=== PATIENT | female | born 1935 | race Caucasian/White ===

== ENCOUNTER 2018-01-18 14:48 | Observation (INO) | payer OTHER ==
[~2018-01-18] VITALS: Ht 157.5 cm; Wt 68.0 kg
[2018-01-18] MEDS ORDERED: SODIUM CHLORIDE 0.9% 1000ML 1,000 ML IV STA (15:16)
--- NOTE | 2018-01-18 15:23 | EMERGENCY ROOM VISIT NOTE ---
History Report prepared by Qiana: Juliet Gray Under the Supervision of: Dr. Cosmo Francisco M.D. First contact with patient: 14:59 Chief Complaint: LEG PAIN,LEG INJURY Stated Complaint: FRACTURED LEFT LEG, RIGHT LEG HEMATOMA, URINARY History of Present Illness The patient is a 82 year old female who presents to the Emergency Room with complaints of an episode of a left leg injury occurring about a week ago. The patient states she was trying to catch her cat and she fell onto her left leg in her front yard. The patient had an appointment at [facility] on Saturday and had an X-ray which showed a left tibia plateau fracture. Per daughter, the patient had a CT of her leg today at [facility]. The patient's daughter states she is concerned for the safety of her mother, given her non-weight bearing status and her difficultly ambulating. She is unsure if she will be having repair surgery on the fracture. The patient started to have blood in her urine and increased urinary frequency today. She denies any abdominal pain. Source of History: patient Onset: a week ago Position: leg (left) Quality: other (injury) Timing: other (episode) Associated Symptoms: + abdominal pain, + urinary symptoms Review of Systems See HPI for pertinent positives & negatives. A total of 10 systems reviewed and were otherwise negative. Past Medical & Surgical Medical Problems: (1) No Known Active Medical Problems Family History Patient reports no known family medical history. Social History Housing Status: lives alone Occupation Status: retired Current/Historical Medications Scheduled Multivitamin (Multivitamin), 1 TAB PO DAILY Omeprazole (Prilosec), 20 MG PO DAILY Simvastatin (Zocor), 40 MG PO QPM Scheduled PRN Buspirone Hcl (Buspirone Hcl), 1 TAB PO BID PRN for Anxiety Allergies Coded Allergies: Cephalexin (Unverified Allergy, Intermediate, LIP SWELLING, 01/18/18) Estrogens (Unverified Allergy, Intermediate, HIVES, 01/18/18) NSAIDs (Unverified Allergy, Intermediate, HIVES/SWELLING, 01/18/18) Sympathomimetics (Unverified Allergy, Intermediate, HIVES, 01/18/18) Physical Exam Vital Signs Date Time Temp Pulse Resp B/P (MAP) Pulse Ox O2 Delivery O2 Flow Rate FiO2 01/18/18 16:18 78 22 95 01/18/18 15:48 72 17 97 01/18/18 15:32 81 01/18/18 15:24 94 Room Air 01/18/18 15:24 94 Room Air 01/18/18 14:51 36.6 88 18 135/79 95 Room Air Physical Exam GENERAL: Awake, alert, well-appearing, in no acute distress HENT: Normocephalic, atraumatic. Oropharynx unremarkable. EYES: Normal conjunctiva. Sclera non-icteric. NECK: Supple. No nuchal rigidity. FROM. No JVD. RESPIRATORY: Clear to auscultation. CARDIAC: Regular rate, normal rhythm. Extremities warm and well perfused. Pulses equal. ABDOMEN: Soft, non-distended. No tenderness to palpation. No rebound or guarding. No masses. RECTAL: Deferred. MUSCULOSKELETAL: Chest examination reveals no tenderness. The back is symmetrical on inspection without obvious abnormality. There is no CVA tenderness to palpation. No joint edema. LOWER EXTREMITIES: Significant bruising to left leg. Calves are equal size bilaterally and non-tender. No edema. No discoloration. : No masses noted, no discharge. NEURO: Normal sensorium. No sensory or motor deficits noted. SKIN: No rash or jaundice noted. Medical Decision & Procedures ER Provider Diagnostic Interpretation: Radiology results as stated below per my review and radiologist interpretation: PELVIC COMPLETE NON OB FINDINGS: The uterus measured 4 cm. The endometrial stripe measured 3 mm. The right ovary measured not seen. The left ovary measured not seen. There was no evidence of pathologic free pelvic fluid. IMPRESSION: Negative pelvic ultrasound for age The above report was generated using voice recognition software. It may contain grammatical, syntax or spelling errors. Electronically signed by: Lico Del Cid M.D. CHEST ONE VIEW PORTABLE FINDINGS: The bones soft tissues and hemidiaphragms are normal. The cardiomediastinal silhouette is normal. The lungs are clear. The pulmonary vasculature is normal. Platelike atelectasis left base. IMPRESSION: Negative chest. The above report was generated using voice recognition software. It may contain grammatical, syntax or spelling errors. Electronically signed by: Lico Del Cid M.D. HEAD WITHOUT CONTRAST (CT) Findings: The paranasal sinuses and mastoid air cells are clear. The calvarium and skull base are intact. The ventricles and sulci are within normal limits. There is no mass, hematoma, midline shift, or acute infarct. Mild chronic small vessel change Impression: No acute intracranial abnormality. Age-related chronic small vessel change The above report was generated using voice recognition software. It may contain grammatical, syntax or spelling errors. Electronically signed by: Lico Del Cid M.D. Imaging obtained from [facility]: CT LOWER EXTREMITY WITHOUT CONTRAST: IMPRESSION: 1. Subtle nondisplaced fracture involving the posterior rim of the medial tibial plateau. 2. Background nondisplaced tricompartmental osteoarthritis, severe in the medial compartment. Laboratory Results 01/18/18 14:40 Red Blood Count 3.98, Mean Corpuscular Volume 94.5, Mean Corpuscular Hemoglobin 31.4, Mean Corpuscular Hemoglobin Concent 33.2, Mean Platelet Volume 9.8, Neutrophils (%) (Auto) 57.4, Lymphocytes (%) (Auto) 32.3, Monocytes (%) (Auto) 8.0, Eosinophils (%) (Auto) 1.6, Basophils (%) (Auto) 0.6, Neutrophils # (Auto) 3.96, Lymphocytes # (Auto) 2.23, Monocytes # (Auto) 0.55, Eosinophils # (Auto) 0.11, Basophils # (Auto) 0.04 01/18/18 14:40 Test 01/18/18 14:40 01/18/18 14:50 White Blood Count 6.90 K/uL (4.8-10.8) Red Blood Count 3.98 M/uL (4.2-5.4) Hemoglobin 12.5 g/dL (12.0-16.0) Hematocrit 37.6 % (37-47) Mean Corpuscular Volume 94.5 fL (80-100) Mean Corpuscular Hemoglobin 31.4 pg (25-34) Mean Corpuscular Hemoglobin Concent 33.2 g/dl (32-36) Platelet Count 275 K/uL (130-400) Mean Platelet Volume 9.8 fL (7.4-10.4) Neutrophils (%) (Auto) 57.4 % Lymphocytes (%) (Auto) 32.3 % Monocytes (%) (Auto) 8.0 % Eosinophils (%) (Auto) 1.6 % Basophils (%) (Auto) 0.6 % Neutrophils # (Auto) 3.96 K/uL (1.4-6.5) Lymphocytes # (Auto) 2.23 K/uL (1.2-3.4) Monocytes # (Auto) 0.55 K/uL (0.11-0.59) Eosinophils # (Auto) 0.11 K/uL (0-0.5) Basophils # (Auto) 0.04 K/uL (0-0.2) RDW Standard Deviation 45.9 fL (36.4-46.3) RDW Coefficient of Variation 13.2 % (11.5-14.5) Immature Granulocyte % (Auto) 0.1 % Immature Granulocyte # (Auto) 0.01 K/uL (0.00-0.02) Anion Gap 5.0 mmol/L (3-11) Est Creatinine Clear Calc Drug Dose 37.4 ml/min Estimated GFR () 58.2 Estimated GFR (Non- 50.2 BUN/Creatinine Ratio 11.4 (10-20) Calcium Level 8.8 mg/dl (8.5-10.1) Total Bilirubin 0.4 mg/dl (0.2-1) Direct Bilirubin 0.1 mg/dl (0-0.2) Aspartate Amino Transf (AST/SGOT) 43 U/L (15-37) Alanine Aminotransferase (ALT/SGPT) 29 U/L (12-78) Alkaline Phosphatase 86 U/L (45-117) Total Creatine Kinase 303 U/L (26-192) Creatine Kinase MB 3.2 ng/ml (0.5-3.6) Creatine Kinase MB Ratio 1.1 (0-3.0) Troponin I < 0.015 ng/ml (0-0.045) Total Protein 7.5 gm/dl (6.4-8.2) Albumin 3.3 gm/dl (3.4-5.0) Thyroid Stimulating Hormone (TSH) 3.690 uIu/ml (0.300-4.500) Urine Color YELLOW Urine Appearance CLEAR (CLEAR) Urine pH 5.5 (4.5-7.5) Urine Specific [place] 1.017 (1.000-1.030) Urine Protein NEG (NEG) Urine Glucose (UA) NEG (NEG) Urine Ketones NEG (NEG) Urine Occult Blood NEG (NEG) Urine Nitrite NEG (NEG) Urine Bilirubin NEG (NEG) Urine Urobilinogen NEG (NEG) Urine Leukocyte Esterase SMALL (NEG) Urine WBC (Auto) 10-30 /hpf (0-5) Urine RBC (Auto) 0-4 /hpf (0-4) Urine Hyaline Casts (Auto) 1-5 /lpf (0-5) Urine Epithelial Cells (Auto) 0-5 /lpf (0-5) Urine Bacteria (Auto) 2+ (NEG) Date/Time Source Procedure Growth Status 01/18/18 16:00 Cervix Swab Trichomonas Preparation - Final Complete Labs reviewed by ED physician. Medications Administered Medications (Trade) Dose Ordered Sig/Marylou Route Start Time Stop Time Status Last Admin Dose Admin Sodium Chloride 1,000 ml @ 999 mls/hr Q1H1M STAT IV 01/18/18 15:16 01/18/18 16:16 DC 01/18/18 15:16 999 MLS/HR Trimethoprim/ Sulfamethoxazole (Septra Ds 800/ 160MG Tab) 1 tab NOW STAT PO 01/18/18 16:32 01/18/18 16:33 DC 01/18/18 17:24 1 TAB Potassium Chloride (Klor-Con M10) 10 meq TODAY@1735 PO 01/18/18 17:35 01/18/18 23:59 01/18/18 18:56 10 MEQ ECG Per My Interpretation Indication: weakness Rate (beats per minute): 66 Rhythm: normal sinus Findings: other (No ST elevation or depression, normal axis) ED Course 1501: Past medical records reviewed. The patient was evaluated in room B11B. A complete history and physical examination was performed. 1516: Ordered Sodium Chloride 1000 ml @ 999 mls/hr. 1632: Ordered Trimethoprim/Sulfamethoxazole 1 tab PO. 1652: I updated the patient on her test results. 1706: I discussed the patient's case with Dr. Hernandez , he has agreed to evaluate the patient for further management and care. Medical Decision Differential diagnosis: Etiologies such as fracture, dislocation, intra-abdominal, pneumothorax, intrathoracic , intracranial, neurologic, renal colic, appendicitis, diverticulitis, mesenteric ischemia, aortic pathology, infections, inflammatory bowel disease, PUD, biliary pathology, UTI, as well as others were entertained. This is an 82-year-old female presents emergency department complaining of left- sided tibial plateau fracture. The patient cannot ambulate around her house as she requires a walker and now can no longer walk due to the injury. There is concern that the patient is not able to care for herself at home. In addition the patient also had a pessary recently removed and is concerned about a UTI. Patient was sent for CAT scan of the head as well as chest x-ray. Pelvic ultrasound does not show any masses. Patient was started on normal saline bolus. I did discuss the case with the hospitalist service who agreed to admit the patient. Patient was in agreement with the treatment plan. Medication Reconcilliation Current Medication List: was personally reviewed by me Blood Pressure Screening Patient's blood pressure: Elevated blood pressure Blood pressure disposition: Elevated BP felt to be situational Consults Time Called: 165 Consulting Physician: Dr. Hernandez Returned Call: [phone] I discussed the patient's case with Dr. Hernandez , he has agreed to evaluate the patient for further management and care. Impression Primary Impression: Tibial plateau fracture Additional Impression: UTI (urinary tract infection) Scribe Attestation The scribe's documentation has been prepared under my direction and personally reviewed by me in its entirety. I confirm that the note above accurately reflects all work, treatment, procedures, and medical decision making performed by me. Departure Information Dispostion Being Evaluated By Hospitalist Referrals No Doctor, Assigned (PCP) Patient Instructions My [facility] Problem Qualifiers Primary Impression: Tibial plateau fracture Encounter type: initial encounter Fracture type: closed Laterality: left Qualified Codes: S82.142A - Displaced bicondylar fracture of left tibia, initial encounter for closed fracture Additional Impression: UTI (urinary tract infection) Urinary tract infection type: acute cystitis Hematuria presence: without hematuria Qualified Codes: N30.00 - Acute cystitis without hematuria
[2018-01-18 16:03] LABS: BASO % 0.6 %; BASO ABS # 0.04 K/uL (0-0.2); EOS % 1.6 %; EOS ABS # 0.11 K/uL (0-0.5); HEMATOCRIT 37.6 % (37-47); HEMOGLOBIN 12.5 g/dL (12.0-16.0); IG# 0.01 K/uL (0.00-0.02); LYMPH % 32.3 %; LYMPH ABS # 2.23 K/uL (1.2-3.4); MEAN CELL VOLUME 94.5 fL (80-100); MEAN CORPUSCULAR HEMOGLOBIN 31.4 pg (25-34); MEAN CORPUSCULAR HGB CONC 33.2 g/dl (32-36); MEAN PLATELET VOLUME 9.8 fL (7.4-10.4); MONO ABS # 0.55 K/uL (0.11-0.59); NEUT % 57.4 %; NEUT ABS # 3.96 K/uL (1.4-6.5); PLATELET COUNT 275 K/uL (130-400); RED CELL DISTRIBUTION WIDTH CV 13.2 % (11.5-14.5); RED CELL DISTRIBUTION WIDTH SD 45.9 fL (36.4-46.3)
[2018-01-18] MEDS ORDERED: PRLSR20 PO (16:14)
[2018-01-18] MEDS ORDERED: MULT-506 PO (16:14)
[2018-01-18] MEDS ORDERED: BUSP5TAB59 PO (16:14)
[2018-01-18] MEDS ORDERED: SIMV40TA2 PO (16:14)
[2018-01-18 16:20] LABS: ALBUMIN 3.3 gm/dl (3.4-5.0); ALT/SGPT 29 U/L (12-78); BLOOD UREA NITROGEN 12 mg/dl (7-18); CALCIUM 8.8 mg/dl (8.5-10.1); CARBON DIOXIDE 28 mmol/L (21-32); CREATININE 1.03 mg/dl (0.60-1.20); GLUCOSE 98 mg/dl (70-99); POTASSIUM 3.4 mmol/L (3.5-5.1); SODIUM 140 mmol/L (136-145)
--- NOTE | 2018-01-18 16:23 | DIAGNOSTIC IMAGING REPORT ---
CHEST ONE VIEW PORTABLE CLINICAL HISTORY: Pt c/O AMS mental status change. Dyspnea. COMPARISON STUDY: No previous studies for comparison. FINDINGS: The bones soft tissues and hemidiaphragms are normal. The cardiomediastinal silhouette is normal. The lungs are clear. The pulmonary vasculature is normal. Platelike atelectasis left base. IMPRESSION: Negative chest. The above report was generated using voice recognition software. It may contain grammatical, syntax or spelling errors. Electronically signed by: Lico Del Cid M.D. 01/18/2018 4:21 PM Dictated Date/Time: 01/18/2018 4:21 PM
[2018-01-18 16:30] LABS: ALKALINE PHOSPHATASE 86 U/L (45-117); AST/SGOT 43 U/L (15-37); CKMB 3.2 ng/ml (0.5-3.6); TOTAL PROTEIN 7.5 gm/dl (6.4-8.2)
[2018-01-18] MEDS ORDERED: SULFAMETHOXAZOLE/TRIMETHOPRIM DS 800/160MG TAB PO STA (16:32)
--- NOTE | 2018-01-18 17:08 | DIAGNOSTIC IMAGING REPORT ---
HEAD WITHOUT CONTRAST (CT) CT DOSE: 601.98 mGy.cm HISTORY: Mental status change Pt c/o AMS TECHNIQUE: Multiaxial CT images of the head were performed without the use of intravenous contrast. A dose lowering technique was utilized adhering to the principles of ALARA. Comparison: None. Findings: The paranasal sinuses and mastoid air cells are clear. The calvarium and skull base are intact. The ventricles and sulci are within normal limits. There is no mass, hematoma, midline shift, or acute infarct. Mild chronic small vessel change Impression: No acute intracranial abnormality. Age-related chronic small vessel change The above report was generated using voice recognition software. It may contain grammatical, syntax or spelling errors. Electronically signed by: Lico Del Cid M.D. 01/18/2018 5:07 PM Dictated Date/Time: 01/18/2018 5:06 PM
--- NOTE | 2018-01-18 17:19 | DIAGNOSTIC IMAGING REPORT ---
PELVIC COMPLETE NON OB CLINICAL HISTORY: Pt c/o vag bleeding BLEEDING COMPARISON STUDY: None FINDINGS: The uterus measured 4 cm. The endometrial stripe measured 3 mm. The right ovary measured not seen. The left ovary measured not seen. There was no evidence of pathologic free pelvic fluid. IMPRESSION: Negative pelvic ultrasound for age The above report was generated using voice recognition software. It may contain grammatical, syntax or spelling errors. Electronically signed by: Lico Del Cid M.D. 01/18/2018 5:18 PM Dictated Date/Time: 01/18/2018 5:17 PM
[2018-01-18] MEDS ORDERED: ACETAMINOPHEN 325 MG TAB PO PRN (18:00)
[2018-01-18] MEDS ORDERED: ONDANSETRON INJ 2 MG/ML 2 ML VIAL IV PRN (18:00)
[2018-01-18] MEDS: POTASSIUM CHLORIDE 10 MEQ TABCR PO SCH ×2 (18:54→18:56)
[2018-01-18 19:00] VITALS: BP 130/73; PULSE 74; TEMP 36.6; O2SAT 96; Ht 157.5 cm; Wt 68.0 kg
--- NOTE | 2018-01-18 19:43 | History and Physical ---
History & Physical Date & Time of Service: Jan 18, 2018 at 19:26 Chief Complaint: Tibial Plateau Fracture Primary Care Physician: Delta Campos D.O. History of Present Illness Source: patient, family, clinic records This is an 82 year old female with a PMH of HLD, GERD, anxiety - presents after a mechanical fall; states she fell on a root while outside, scraped the back of her right elbow and landed on both of her knees and face. She was seen by orthopedics, Dr. Mojica, as an outpatient and had a CT of the L knee done as well as L knee aspiration. CT suggested L tibial plateau fracture. Patient was to have physical therapy as an outpatient, but due to her inability to ambulate , she presented to the ED. Upon presentation - plan was to send her to rehab ([facility]), but due to insurance purposes, she was admitted. Currently, denying most symptoms, including L knee pain. Past Medical/Surgical History Medical Problems: (1) No Known Active Medical Problems Family History Patient reports no known family medical history. Social History Occupational Status: retired Allergies Coded Allergies: Cephalexin (Unverified Allergy, Intermediate, LIP SWELLING, 01/18/18) Estrogens (Unverified Allergy, Intermediate, HIVES, 01/18/18) NSAIDs (Unverified Allergy, Intermediate, HIVES/SWELLING, 01/18/18) Sympathomimetics (Unverified Allergy, Intermediate, HIVES, 01/18/18) Home Medications Scheduled Multivitamin (Multivitamin), 1 TAB PO DAILY Omeprazole (Prilosec), 20 MG PO DAILY Simvastatin (Zocor), 40 MG PO QPM Scheduled PRN Buspirone Hcl (Buspirone Hcl), 1 TAB PO BID PRN for Anxiety Review of Systems Constitutional: No fever, No chills, No weakness Eyes: No worsening of vision ENT: No hearing loss Respiratory: No cough, No sputum, No wheezing, No shortness of breath, No dyspnea on exertion, No dyspnea at rest, No hemoptysis Cardiovascular: No chest pain, No edema, No palpitations Abdomen: No pain, No nausea, No vomiting, No diarrhea, No constipation, No GI bleeding Musculoskeletal: + swelling (L knee), No joint pain, No muscle pain, No calf pain Genitourinary - Female: No dysuria, No urinary frequency, No urinary urgency, No urinary incontinence, No urinary retention, No hematuria Neurologic: + balance problems, No memory loss, No paralysis, No weakness, No numbness/tingling, No vertigo Psychiatric: No depression symptoms, No anxiety, No insomnia Endocrine: No fatigue Hematologic / Lymphatic: No abnormal bleeding/bruising Integumentary: No rash Allergic / Immunologic: No environmental allergies, No seasonal allergies Physical Exam Vital Signs Date Time Temp Pulse Resp B/P (MAP) Pulse Ox O2 Delivery O2 Flow Rate FiO2 01/18/18 19:04 36.6 95 22 136/87 95 01/18/18 18:37 95 136/87 01/18/18 16:18 78 22 95 01/18/18 15:48 72 17 97 01/18/18 15:32 81 01/18/18 15:24 94 Room Air 01/18/18 15:24 94 Room Air 01/18/18 14:51 36.6 88 18 135/79 95 Room Air General Appearance: no apparent distress Head: normocephalic, atraumatic Eyes: normal inspection ENT: normal ENT inspection, hearing grossly normal Neck: supple Respiratory/Chest: chest non-tender, lungs clear, normal breath sounds, no respiratory distress, no accessory muscle use Cardiovascular: regular rate, rhythm, no edema, no murmur, normal peripheral pulses Abdomen/GI: normal bowel sounds, non tender, soft Back: normal inspection, no CVA tenderness, no muscle spasm, normal range of motion Extremities/Musculoskelatal: no calf tenderness, normal capillary refill, no pedal edema, + swelling (L knee and thigh swelling), + pertinent finding ( decreased flexion of the L knee) 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, no motor/sensory deficits, alert, normal mood/affect, oriented x 3 Skin: normal color Lymphatic: no adenopathy Diagnostics Laboratory Results Results Past 24 Hours Test 01/18/18 14:40 01/18/18 14:50 01/18/18 19:22 Range/Units White Blood Count 6.90 4.8-10.8 K/uL Red Blood Count 3.98 4.2-5.4 M/uL Hemoglobin 12.5 12.0-16.0 g/dL Hematocrit 37.6 37-47 % Mean Corpuscular Volume 94.5 80-100 fL Mean Corpuscular Hemoglobin 31.4 25-34 pg Mean Corpuscular Hemoglobin Concent 33.2 32-36 g/dl Platelet Count 275 130-400 K/uL Mean Platelet Volume 9.8 7.4-10.4 fL Neutrophils (%) (Auto) 57.4 % Lymphocytes (%) (Auto) 32.3 % Monocytes (%) (Auto) 8.0 % Eosinophils (%) (Auto) 1.6 % Basophils (%) (Auto) 0.6 % Neutrophils # (Auto) 3.96 1.4-6.5 K/uL Lymphocytes # (Auto) 2.23 1.2-3.4 K/uL Monocytes # (Auto) 0.55 0.11-0.59 K/uL Eosinophils # (Auto) 0.11 0-0.5 K/uL Basophils # (Auto) 0.04 0-0.2 K/uL RDW Standard Deviation 45.9 36.4-46.3 fL RDW Coefficient of Variation 13.2 11.5-14.5 % Immature Granulocyte % (Auto) 0.1 % Immature Granulocyte # (Auto) 0.01 0.00-0.02 K/uL Sodium Level 140 136-145 mmol/L Potassium Level 3.4 3.5-5.1 mmol/L Chloride Level 107 98-107 mmol/L Carbon Dioxide Level 28 21-32 mmol/L Anion Gap 5.0 3-11 mmol/L Blood Urea Nitrogen 12 7-18 mg/dl Creatinine 1.03 0.60-1.20 mg/dl Est Creatinine Clear Calc Drug Dose 37.4 ml/min Estimated GFR () 58.2 Estimated GFR (Non- 50.2 BUN/Creatinine Ratio 11.4 10-20 Random Glucose 98 70-99 mg/dl Calcium Level 8.8 8.5-10.1 mg/dl Total Bilirubin 0.4 0.2-1 mg/dl Direct Bilirubin 0.1 0-0.2 mg/dl Aspartate Amino Transf (AST/SGOT) 43 15-37 U/L Alanine Aminotransferase (ALT/SGPT) 29 12-78 U/L Alkaline Phosphatase 86 45-117 U/L Total Creatine Kinase 303 26-192 U/L Creatine Kinase MB 3.2 0.5-3.6 ng/ml Creatine Kinase MB Ratio 1.1 0-3.0 Troponin I < 0.015 0-0.045 ng/ml Total Protein 7.5 6.4-8.2 gm/dl Albumin 3.3 3.4-5.0 gm/dl Thyroid Stimulating Hormone (TSH) 3.690 0.300-4.500 uIu/ml Urine Color YELLOW Urine Appearance CLEAR CLEAR Urine pH 5.5 4.5-7.5 Urine Specific [place] 1.017 1.000-1.030 Urine Protein NEG NEG Urine Glucose (UA) NEG NEG Urine Ketones NEG NEG Urine Occult Blood NEG NEG Urine Nitrite NEG NEG Urine Bilirubin NEG NEG Urine Urobilinogen NEG NEG Urine Leukocyte Esterase SMALL NEG Urine WBC (Auto) 10-30 0-5 /hpf Urine RBC (Auto) 0-4 0-4 /hpf Urine Hyaline Casts (Auto) 1-5 0-5 /lpf Urine Epithelial Cells (Auto) 0-5 0-5 /lpf Urine Bacteria (Auto) 2+ NEG Microbiology Results 01/18/18 Trichomonas Preparation - Final, Complete 01/18/18 Gram Stain - Preliminary, Resulted 01/18/18 Genital Culture, Resulted Pending 01/18/18 Urine Culture, Received Pending Diagnostic Radiology HEAD WITHOUT CONTRAST (CT) CT DOSE: 601.98 mGy.cm HISTORY: Mental status change Pt c/o AMS TECHNIQUE: Multiaxial CT images of the head were performed without the use of intravenous contrast. A dose lowering technique was utilized adhering to the principles of ALARA. Comparison: None. Findings: The paranasal sinuses and mastoid air cells are clear. The calvarium and skull base are intact. The ventricles and sulci are within normal limits. There is no mass, hematoma, midline shift, or acute infarct. Mild chronic small vessel change Impression: No acute intracranial abnormality. Age-related chronic small vessel change CHEST ONE VIEW PORTABLE CLINICAL HISTORY: Pt c/O AMS mental status change. Dyspnea. COMPARISON STUDY: No previous studies for comparison. FINDINGS: The bones soft tissues and hemidiaphragms are normal. The cardiomediastinal silhouette is normal. The lungs are clear. The pulmonary vasculature is normal. Platelike atelectasis left base. IMPRESSION: Negative chest. PELVIC COMPLETE NON OB CLINICAL HISTORY: Pt c/o vag bleeding BLEEDING COMPARISON STUDY: None FINDINGS: The uterus measured 4 cm. The endometrial stripe measured 3 mm. The right ovary measured not seen. The left ovary measured not seen. There was no evidence of pathologic free pelvic fluid. IMPRESSION: Negative pelvic ultrasound for age EKG Normal sinus rhythm Normal ECG Impression Assessment and Plan This is an 82 year old female with a PMH of HLD, GERD, anxiety - presents after a mechanical fall and subsequently found to have a nondisplaced L tibial plateau fracture Nondisplaced L Tibial Plateau Fracture - nonsurgical fracture of the L tibia - will consult PT/OT - partial weightbearing status on the L as of now - may need to discuss weightbearing status with Dr. Mojica ([facility]) - will need placement - case management consulted - tramadol PRN for pain HLD - continue Zocor GERD - PPI DVT ppx - Lovenox (monitor for hematoma) FULL CODE Resuscitation Status VTE Prophylaxis Will order VTE Prophylaxis: Yes
[2018-01-18] MEDS ORDERED: TRAMADOL HCL 50 MG TAB PO PRN (19:45)
[2018-01-18] MEDS ORDERED: IV FLUIDS COMPLETED PRN (20:30)
[2018-01-18] MEDS: ENOXAPARIN 40 MG/0.4 ML SYR SQ SCH (21:00)
[2018-01-18] MEDS: SIMVASTATIN 40 MG TAB PO SCH (21:13)
[2018-01-18 23:05] VITALS: BP 112/66; PULSE 75; TEMP 36.8; O2SAT 93
[2018-01-19 07:20] VITALS: BP 128/71; PULSE 71; TEMP 36.4; O2SAT 93
[2018-01-19] MEDS: MULTIVITAMIN TAB PO SCH (08:40)
[2018-01-19] MEDS: PANTOprazole SOD 40 MG TAB PO SCH (08:40)
[2018-01-19 09:16] LABS: BASO % 0.4 %; BASO ABS # 0.03 K/uL (0-0.2); EOS ABS # 0.16 K/uL (0-0.5); HEMATOCRIT 39.5 % (37-47); IG# 0.01 K/uL (0.00-0.02); LYMPH % 28.7 %; LYMPH ABS # 2.33 K/uL (1.2-3.4); MEAN CELL VOLUME 95.4 fL (80-100); MEAN CORPUSCULAR HEMOGLOBIN 31.4 pg (25-34); MEAN CORPUSCULAR HGB CONC 32.9 g/dl (32-36); MEAN PLATELET VOLUME 9.5 fL (7.4-10.4); MONO % 5.8 %; MONO ABS # 0.47 K/uL (0.11-0.59); NEUT ABS # 5.11 K/uL (1.4-6.5); PLATELET COUNT 260 K/uL (130-400); RED CELL DISTRIBUTION WIDTH CV 13.5 % (11.5-14.5); RED CELL DISTRIBUTION WIDTH SD 46.7 fL (36.4-46.3); WHITE BLOOD COUNT 8.11 K/uL (4.8-10.8)
--- NOTE | 2018-01-19 09:49 | Progress Note ---
Medicine Progress Note Date & Time of Visit: Jan 19, 2018 at 09:42. Subjective Seen resting in bed comfortable States she has pain on her knee cap mild to moderate, worse with bending the knee joint Denies chest pain, dyspnea, palpitations, dizziness no other symptoms Objective Last 8 Hrs Date Time Temp Pulse Resp B/P (MAP) Pulse Ox O2 Delivery O2 Flow Rate FiO2 01/19/18 07:46 Room Air 01/19/18 07:20 36.4 71 16 128/71 (90) 93 Room Air Physical Exam: General- oriented x 3 not in distress speaking sentences no accessory muscle use Head- atraumatic Eyes- PERRL, EOMI, anicteric ENT- oropharynx clear Neck- supple, no JVD, no adenopathy, no thyromegaly Lungs- clear to auscultation bilaterally Heart- regular rhythm; no murmur, normal rate Abdomen- normal bowel sounds, soft, nontender, no masses or hepatosplenomegaly Extremities- Left knee positive moderate edema on the medial aspect, mild tenderness on the patella, no erythema/warmth limited knee flexion no pretibial edema, no calf tenderness; peripheral pulses intact Neuro- alert, oriented x 3; no gross focal deficits Skin- warm & dry Laboratory Results: Last 24 Hours Test 01/18/18 14:40 01/18/18 14:50 01/18/18 15:30 01/18/18 20:00 White Blood Count 6.90 K/uL Red Blood Count 3.98 M/uL Hemoglobin 12.5 g/dL Hematocrit 37.6 % Mean Corpuscular Volume 94.5 fL Mean Corpuscular Hemoglobin 31.4 pg Mean Corpuscular Hemoglobin Concent 33.2 g/dl Platelet Count 275 K/uL Mean Platelet Volume 9.8 fL Neutrophils (%) (Auto) 57.4 % Lymphocytes (%) (Auto) 32.3 % Monocytes (%) (Auto) 8.0 % Eosinophils (%) (Auto) 1.6 % Basophils (%) (Auto) 0.6 % Neutrophils # (Auto) 3.96 K/uL Lymphocytes # (Auto) 2.23 K/uL Monocytes # (Auto) 0.55 K/uL Eosinophils # (Auto) 0.11 K/uL Basophils # (Auto) 0.04 K/uL RDW Standard Deviation 45.9 fL RDW Coefficient of Variation 13.2 % Immature Granulocyte % (Auto) 0.1 % Immature Granulocyte # (Auto) 0.01 K/uL Sodium Level 140 mmol/L Potassium Level 3.4 mmol/L Chloride Level 107 mmol/L Carbon Dioxide Level 28 mmol/L Anion Gap 5.0 mmol/L Blood Urea Nitrogen 12 mg/dl Creatinine 1.03 mg/dl Est Creatinine Clear Calc Drug Dose 37.4 ml/min Estimated GFR () 58.2 Estimated GFR (Non- 50.2 BUN/Creatinine Ratio 11.4 Random Glucose 98 mg/dl Calcium Level 8.8 mg/dl Total Bilirubin 0.4 mg/dl Direct Bilirubin 0.1 mg/dl Aspartate Amino Transf (AST/SGOT) 43 U/L Alanine Aminotransferase (ALT/SGPT) 29 U/L Alkaline Phosphatase 86 U/L Total Creatine Kinase 303 U/L Creatine Kinase MB 3.2 ng/ml Creatine Kinase MB Ratio 1.1 Troponin I < 0.015 ng/ml Total Protein 7.5 gm/dl Albumin 3.3 gm/dl Thyroid Stimulating Hormone (TSH) 3.690 uIu/ml Urine Color YELLOW Urine Appearance CLEAR Urine pH 5.5 Urine Specific [place] 1.017 Urine Protein NEG Urine Glucose (UA) NEG Urine Ketones NEG Urine Occult Blood NEG Urine Nitrite NEG Urine Bilirubin NEG Urine Urobilinogen NEG Urine Leukocyte Esterase SMALL Urine WBC (Auto) 10-30 /hpf Urine RBC (Auto) 0-4 /hpf Urine Hyaline Casts (Auto) 1-5 /lpf Urine Epithelial Cells (Auto) 0-5 /lpf Urine Bacteria (Auto) 2+ Bedside Glucose 96 mg/dl Prothrombin Time 10.8 SECONDS Prothromb Time International Ratio 1.0 Activated Partial Thromboplast Time 25.0 SECONDS Partial Thromboplastin Ratio 1.0 Test 01/19/18 09:04 White Blood Count 8.11 K/uL Red Blood Count 4.14 M/uL Hemoglobin 13.0 g/dL Hematocrit 39.5 % Mean Corpuscular Volume 95.4 fL Mean Corpuscular Hemoglobin 31.4 pg Mean Corpuscular Hemoglobin Concent 32.9 g/dl Platelet Count 260 K/uL Mean Platelet Volume 9.5 fL Neutrophils (%) (Auto) 63.0 % Lymphocytes (%) (Auto) 28.7 % Monocytes (%) (Auto) 5.8 % Eosinophils (%) (Auto) 2.0 % Basophils (%) (Auto) 0.4 % Neutrophils # (Auto) 5.11 K/uL Lymphocytes # (Auto) 2.33 K/uL Monocytes # (Auto) 0.47 K/uL Eosinophils # (Auto) 0.16 K/uL Basophils # (Auto) 0.03 K/uL RDW Standard Deviation 46.7 fL RDW Coefficient of Variation 13.5 % Immature Granulocyte % (Auto) 0.1 % Immature Granulocyte # (Auto) 0.01 K/uL Date/Time Source Procedure Growth Status 01/18/18 16:00 Cervix Swab Trichomonas Preparation - Final Complete 01/18/18 14:50 Genital Female Gram Stain - Final Resulted 01/18/18 14:50 Genital Culture - Preliminary Group B Beta Strep Resulted 01/18/18 14:50 Urine,Catheterized Urine Culture Pending Received Assessment & Plan This is an 82 year old female with a PMH of HLD, GERD, anxiety - presents after a mechanical fall and subsequently found to have a nondisplaced L tibial plateau fracture Nondisplaced L Tibial Plateau Fracture s/p Mechanical Fall - CT scan of the Left Knee 01/18/18 from [facility] (+) nondisplaced fracture of the medial tibial plateau (+) moderate joint effusion - will consult Ortho PRN analgesics, ice pack PT/OT eval - possible transition to Rehab/SNF HLD - continue Zocor GERD - PPI DVT ppx - Lovenox (monitor for hematoma) FULL CODE Disposition usually lives alone at home - possible transition to Rehab/SNF Current Inpatient Medications: Current Inpatient Medications Medications (Trade) Dose Ordered Sig/Marylou Route Start Time Stop Time Status Last Admin Dose Admin Enoxaparin Sodium (Lovenox Inj) 40 mg Q24H SQ 01/18/18 21:00 02/17/18 20:59 Acetaminophen (Tylenol Tab) 650 mg Q4H PRN PO 01/18/18 18:00 02/17/18 17:59 Ondansetron HCl (Zofran Inj) 4 mg Q6H PRN IV 01/18/18 18:00 02/17/18 17:59 Buspirone HCl (Buspar Tab) 5 mg BID PRN PO 01/18/18 18:00 02/17/18 17:59 Multivitamins (Multivitamin Tab) 1 tab DAILY PO 01/19/18 09:00 02/18/18 08:59 01/19/18 08:40 1 TAB Simvastatin (Zocor Tab) 40 mg QPM PO 01/18/18 21:00 02/17/18 20:59 01/18/18 21:13 40 MG Pantoprazole Sodium (Protonix Tab) 40 mg DAILY PO 01/19/18 09:00 02/18/18 08:59 01/19/18 08:40 40 MG Tramadol HCl (Ultram Tab) 50 mg Q4H PRN PO 01/18/18 19:45 02/17/18 19:44 Miscellaneous (Iv Fluids Completed) 1 ea PRN PRN N/A 01/18/18 20:30 01/18/19 20:29
[2018-01-19 09:55] LABS: CALCIUM 8.8 mg/dl (8.5-10.1); CREATININE 1.05 mg/dl (0.60-1.20); POTASSIUM 3.7 mmol/L (3.5-5.1)
--- NOTE | 2018-01-19 14:09 | ORTHOPEDIC CONSULTATION ---
DATE OF CONSULTATION: 01/19/2018 HISTORY OF PRESENT ILLNESS: This is an 82-year-old female who is seen at the request of Dr. De Leon and the medical service for left knee pain status post fall directly on to her left knee several days ago. The patient was seen by another provider as she was unable to get an earlier appointment at any other facilities and was given instructions to minimize left lower extremity weightbearing and she had a knee aspiration of the left knee. She had a CT scan performed and noted a nondisplaced medial tibial plateau fracture. She had inability to ambulate and was having significant difficulty with weightbearing, walking and maintaining nonweightbearing status and she then presented to the ER with ambulatory dysfunction and was then admitted to the hospital. The patient states that knee pain is well managed if she maintains nonweightbearing. She has had no significant discomfort in the left knee prior to her fall, but she did note that she has been losing range of motion of the left knee for the last several years. Prior to admission, she was staying at a 96-year-old friend's home and she was sleeping upright in a recliner. She is . PAST MEDICAL HISTORY: Reflux and hypercholesterolemia as well as some anxiety. PAST SURGICAL HISTORY: Noncontributory. ALLERGIES: CEPHALEXIN WITH SOME LIP SWELLING, ESTROGEN HIVES, NSAIDs HIVES AND SWELLING, SYMPATHOMIMETICS HIVES. MEDICATIONS: Multivitamin daily, Prilosec 20 mg p.o. daily, Zocor 40 mg p.o. q.p.m. and BuSpar 1 tab p.o. b.i.d. p.r.n. anxiety. SOCIAL HISTORY: She is . She is retired. She lives alone. However, recently, she has been staying at a friend's home after injury. Denies tobacco, alcohol or drug use. PHYSICAL EXAMINATION: GENERAL: This is a pleasant 82-year-old female who is present with family members at bedside. She is sitting upright, eating lunch. NEUROLOGIC: A&O x3. Speech clear and fluent. Affect is appropriate. She is wearing glasses. HEART: Regular rate and rhythm. LUNGS: Clear to auscultation bilaterally. ABDOMEN: Soft, nontender. EXTREMITIES: Examination of the left knee demonstrates skin warm, dry and intact. Minor bruising along the anterior aspect of the patella. She has tenderness to palpation on the medial joint line and also at the medial tibial plateau. Also, tenderness over the anterior aspect of the patella. Collateral ligaments are stable. Range of motion is limited due to some pain and guarding. Range of motion is 12 degrees of flexion to approximately 90 degrees of flexion. She has a flexion contracture of the left knee, which the patient states is not new. There is [id number] crepitation with active and passive flexion and extension of bilateral knees. Also noted some bruising and abrasions of the anterior aspect of the right knee; however, there is no deep tenderness felt with palpation. No ligamentous instability. Right knee motion is 0-110 degrees of flexion without pain or difficulty. IMAGING STUDIES: Radiographs reviewed from [facility] demonstrate advanced degenerative joint disease of the left knee with marginal osteophytes, subchondral sclerosis and formation of subchondral cysts. There is a flexed position of the knee. No obvious displaced fractures are noted. Osteopenia is evident. LABORATORY DATA: Reviewed. IMPRESSION: 1. Left nondisplaced medial tibial plateau fracture. 2. Degenerative joint disease, left knee. 3. Flexion contracture, left knee. 4. Effusion, left knee. RECOMMENDATIONS: Limited toe touch weightbearing with a walker and assist x1. Ice p.r.n. to the left knee. Recommend referral for rehabilitation center versus [facility] facility with physical therapy available. The patient will be unable to tolerate use of crutches or a walker for assisted use due to her limited upper body strength. Follow up with Dr. Farmer in the clinic in approximately 3-4 weeks for further followup care and management unless she prefers to be seen by the other provider at [facility].
[2018-01-19 15:10] VITALS: BP 126/69; PULSE 82; TEMP 36.7; O2SAT 95
[2018-01-19 15:12] VITALS: BP 136/76; PULSE 78; O2SAT 94
[2018-01-19 15:14] VITALS: BP 117/80; PULSE 95; O2SAT 93
[2018-01-19] MEDS: SIMVASTATIN 40 MG TAB PO SCH (20:35)
[2018-01-19] MEDS: ENOXAPARIN 40 MG/0.4 ML SYR SQ SCH (20:38)
[2018-01-19 23:05] VITALS: BP 131/82; PULSE 84; TEMP 36.9; O2SAT 94
[2018-01-20 07:31] LABS: BASO % 0.3 %; BASO ABS # 0.02 K/uL (0-0.2); EOS % 2.9 %; EOS ABS # 0.19 K/uL (0-0.5); HEMATOCRIT 35.7 % (37-47); HEMOGLOBIN 11.8 g/dL (12.0-16.0); IG# 0.02 K/uL (0.00-0.02); LYMPH % 36.1 %; LYMPH ABS # 2.38 K/uL (1.2-3.4); MEAN CELL VOLUME 93.9 fL (80-100); MEAN CORPUSCULAR HEMOGLOBIN 31.1 pg (25-34); MEAN CORPUSCULAR HGB CONC 33.1 g/dl (32-36); MEAN PLATELET VOLUME 9.5 fL (7.4-10.4); MONO % 8.5 %; MONO ABS # 0.56 K/uL (0.11-0.59); NEUT % 51.9 %; NEUT ABS # 3.43 K/uL (1.4-6.5); PLATELET COUNT 248 K/uL (130-400); RED CELL DISTRIBUTION WIDTH CV 13.6 % (11.5-14.5); RED CELL DISTRIBUTION WIDTH SD 46.9 fL (36.4-46.3)
[2018-01-20 07:59] LABS: CALCIUM 8.6 mg/dl (8.5-10.1); CREATININE 0.89 mg/dl (0.60-1.20); POTASSIUM 3.6 mmol/L (3.5-5.1)
[2018-01-20 08:24] VITALS: BP 134/82; PULSE 71; TEMP 36.5; O2SAT 95
[2018-01-20 08:27] VITALS: O2SAT 95
[2018-01-20] MEDS: MULTIVITAMIN TAB PO SCH (09:18)
[2018-01-20] MEDS: PANTOprazole SOD 40 MG TAB PO SCH (09:19)
[2018-01-20 15:06] VITALS: BP 133/75; PULSE 77; TEMP 36.7; O2SAT 96
[2018-01-20 15:48] VITALS: BP_SYST 126; BP_SYST 145; BP_DIAS 64; BP_DIAS 80; PULSE 90; PULSE 97
--- NOTE | 2018-01-20 16:44 | Progress Note ---
Medicine Progress Note Date & Time of Visit: Jan 20, 2018 at 16:41. Subjective seen resting in bed, comfortable in good spirits states she feels fine overall except for intermittent left knee pain, worse with knee extension no other symptoms Objective Last 8 Hrs Date Time Temp Pulse Resp B/P (MAP) Pulse Ox O2 Delivery O2 Flow Rate FiO2 01/20/18 15:48 97 145/80 (101) 90 126/64 (84) 01/20/18 15:06 36.7 77 18 133/75 (94) 96 Room Air Physical Exam: General- oriented x 3 not in distress speaking sentences no accessory muscle use Eyes- anicteric Neck- supple, no JVD Lungs- clear to breath sounds bilaterally Heart- regular rhythm; no murmur, normal rate Abdomen- normal bowel sounds, soft, nontender Extremities- Left knee positive moderate edema on the medial aspect- improved, mild tenderness on the patella, no erythema/warmth limited knee flexion no pretibial edema, no calf tenderness; peripheral pulses intact Neuro- alert, oriented x 3; no gross focal deficits Skin- warm & dry Laboratory Results: Last 24 Hours Test 01/20/18 06:36 White Blood Count 6.60 K/uL Red Blood Count 3.80 M/uL Hemoglobin 11.8 g/dL Hematocrit 35.7 % Mean Corpuscular Volume 93.9 fL Mean Corpuscular Hemoglobin 31.1 pg Mean Corpuscular Hemoglobin Concent 33.1 g/dl Platelet Count 248 K/uL Mean Platelet Volume 9.5 fL Neutrophils (%) (Auto) 51.9 % Lymphocytes (%) (Auto) 36.1 % Monocytes (%) (Auto) 8.5 % Eosinophils (%) (Auto) 2.9 % Basophils (%) (Auto) 0.3 % Neutrophils # (Auto) 3.43 K/uL Lymphocytes # (Auto) 2.38 K/uL Monocytes # (Auto) 0.56 K/uL Eosinophils # (Auto) 0.19 K/uL Basophils # (Auto) 0.02 K/uL RDW Standard Deviation 46.9 fL RDW Coefficient of Variation 13.6 % Immature Granulocyte % (Auto) 0.3 % Immature Granulocyte # (Auto) 0.02 K/uL Sodium Level 138 mmol/L Potassium Level 3.6 mmol/L Chloride Level 107 mmol/L Carbon Dioxide Level 28 mmol/L Anion Gap 4.0 mmol/L Blood Urea Nitrogen 9 mg/dl Creatinine 0.89 mg/dl Est Creatinine Clear Calc Drug Dose 43.3 ml/min Estimated GFR () 69.5 Estimated GFR (Non- 59.9 BUN/Creatinine Ratio 9.6 Random Glucose 86 mg/dl Calcium Level 8.6 mg/dl Assessment & Plan This is an 82 year old female with a PMH of HLD, GERD, anxiety - presents after a mechanical fall and subsequently found to have a nondisplaced L tibial plateau fracture Nondisplaced L Tibial Plateau Fracture s/p Mechanical Fall - CT scan of the Left Knee 01/18/18 from [facility] (+) nondisplaced fracture of the medial tibial plateau (+) moderate joint effusion - Ortho consulted no surgical intervention recommended: Limited toe touch weightbearing with a walker and assist x1. Ice p.r.n. to the left knee. PRN analgesics, ice pack PT/OT in progress -transition to [facility] when accepted HLD - continue Zocor GERD - PPI DVT ppx - Lovenox (monitor for hematoma) FULL CODE Disposition transition to Rehab/SNF when accepted Current Inpatient Medications: Current Inpatient Medications Medications (Trade) Dose Ordered Sig/Marylou Route Start Time Stop Time Status Last Admin Dose Admin Enoxaparin Sodium (Lovenox Inj) 40 mg Q24H SQ 01/18/18 21:00 02/17/18 20:59 01/19/18 20:38 40 MG Acetaminophen (Tylenol Tab) 650 mg Q4H PRN PO 01/18/18 18:00 02/17/18 17:59 Ondansetron HCl (Zofran Inj) 4 mg Q6H PRN IV 01/18/18 18:00 02/17/18 17:59 Buspirone HCl (Buspar Tab) 5 mg BID PRN PO 01/18/18 18:00 02/17/18 17:59 Multivitamins (Multivitamin Tab) 1 tab DAILY PO 01/19/18 09:00 02/18/18 08:59 01/20/18 09:18 1 TAB Simvastatin (Zocor Tab) 40 mg QPM PO 01/18/18 21:00 02/17/18 20:59 01/19/18 20:35 40 MG Pantoprazole Sodium (Protonix Tab) 40 mg DAILY PO 01/19/18 09:00 02/18/18 08:59 01/20/18 09:19 40 MG Tramadol HCl (Ultram Tab) 50 mg Q4H PRN PO 01/18/18 19:45 02/17/18 19:44 Miscellaneous (Iv Fluids Completed) 1 ea PRN PRN N/A 01/18/18 20:30 01/18/19 20:29
[2018-01-20] MEDS: ENOXAPARIN 40 MG/0.4 ML SYR SQ SCH (20:48)
[2018-01-20] MEDS: SIMVASTATIN 40 MG TAB PO SCH (20:48)
[2018-01-20 23:10] VITALS: BP 111/69; PULSE 71; TEMP 37.1; O2SAT 95
[2018-01-21 06:57] LABS: BASO % 0.5 %; BASO ABS # 0.03 K/uL (0-0.2); EOS % 2.2 %; EOS ABS # 0.14 K/uL (0-0.5); HEMATOCRIT 35.1 % (37-47); HEMOGLOBIN 11.7 g/dL (12.0-16.0); IG# 0.01 K/uL (0.00-0.02); LYMPH % 37.9 %; LYMPH ABS # 2.46 K/uL (1.2-3.4); MEAN CELL VOLUME 93.9 fL (80-100); MEAN CORPUSCULAR HEMOGLOBIN 31.3 pg (25-34); MEAN CORPUSCULAR HGB CONC 33.3 g/dl (32-36); MEAN PLATELET VOLUME 9.5 fL (7.4-10.4); MONO % 8.9 %; MONO ABS # 0.58 K/uL (0.11-0.59); NEUT % 50.3 %; NEUT ABS # 3.27 K/uL (1.4-6.5); PLATELET COUNT 230 K/uL (130-400); RED CELL DISTRIBUTION WIDTH CV 13.4 % (11.5-14.5); RED CELL DISTRIBUTION WIDTH SD 45.9 fL (36.4-46.3); WHITE BLOOD COUNT 6.49 K/uL (4.8-10.8)
[2018-01-21 07:17] VITALS: BP 115/71; PULSE 69; TEMP 36.8; O2SAT 92
[2018-01-21 07:35] LABS: CALCIUM 8.8 mg/dl (8.5-10.1); CREATININE 0.88 mg/dl (0.60-1.20); POTASSIUM 3.7 mmol/L (3.5-5.1)
[2018-01-21] MEDS: MULTIVITAMIN TAB PO SCH (08:23)
[2018-01-21] MEDS: PANTOprazole SOD 40 MG TAB PO SCH (08:23)
--- NOTE | 2018-01-21 10:45 | Progress Note ---
Medicine Progress Note Date & Time of Visit: Jan 21, 2018 at 10:43. Subjective seen resting in bed, comfortable states left knee pain continues to feel better denies leg weakness no chest pain, dyspnea, palpitations, dizziness no other symptoms states she is ready and would like to be discharge today Objective Last 8 Hrs Date Time Temp Pulse Resp B/P (MAP) Pulse Ox O2 Delivery O2 Flow Rate FiO2 01/21/18 07:45 Room Air 01/21/18 07:17 36.8 69 18 115/71 (86) 92 Room Air Physical Exam: General- oriented x 3 not in distress speaking sentences no accessory muscle use Neck- no JVD Lungs- clear to breath sounds bilaterally no rales/wheezes Heart- regular rhythm; no murmur, normal rate Abdomen- normal bowel sounds, soft, nontender Extremities- Left knee mild edema on the medial aspect- improved, no tenderness on the patella, no erythema/warmth limited knee flexion-- improving no pretibial edema, no calf tenderness; peripheral pulses intact Neuro- alert, oriented x 3; no gross focal deficits Skin- warm & dry Laboratory Results: Last 24 Hours Test 01/21/18 06:28 White Blood Count 6.49 K/uL Red Blood Count 3.74 M/uL Hemoglobin 11.7 g/dL Hematocrit 35.1 % Mean Corpuscular Volume 93.9 fL Mean Corpuscular Hemoglobin 31.3 pg Mean Corpuscular Hemoglobin Concent 33.3 g/dl Platelet Count 230 K/uL Mean Platelet Volume 9.5 fL Neutrophils (%) (Auto) 50.3 % Lymphocytes (%) (Auto) 37.9 % Monocytes (%) (Auto) 8.9 % Eosinophils (%) (Auto) 2.2 % Basophils (%) (Auto) 0.5 % Neutrophils # (Auto) 3.27 K/uL Lymphocytes # (Auto) 2.46 K/uL Monocytes # (Auto) 0.58 K/uL Eosinophils # (Auto) 0.14 K/uL Basophils # (Auto) 0.03 K/uL RDW Standard Deviation 45.9 fL RDW Coefficient of Variation 13.4 % Immature Granulocyte % (Auto) 0.2 % Immature Granulocyte # (Auto) 0.01 K/uL Sodium Level 139 mmol/L Potassium Level 3.7 mmol/L Chloride Level 107 mmol/L Carbon Dioxide Level 27 mmol/L Anion Gap 5.0 mmol/L Blood Urea Nitrogen 10 mg/dl Creatinine 0.88 mg/dl Est Creatinine Clear Calc Drug Dose 43.8 ml/min Estimated GFR () 70.4 Estimated GFR (Non- 60.8 BUN/Creatinine Ratio 11.2 Random Glucose 88 mg/dl Calcium Level 8.8 mg/dl Assessment & Plan This is an 82 year old female with a PMH of HLD, GERD, anxiety - presents after a mechanical fall and subsequently found to have a nondisplaced L tibial plateau fracture Nondisplaced L Tibial Plateau Fracture s/p Mechanical Fall - CT scan of the Left Knee 01/18/18 from [facility] (+) nondisplaced fracture of the medial tibial plateau (+) moderate joint effusion - Ortho consulted Dr. Farmer no surgical intervention recommended: Limited toe touch weightbearing with a walker and assist x1. Ice p.r.n. to the left knee. PRN analgesics, ice pack PT/OT recommend Rehab/SNF -transition to [facility] ff up with Orthopedic Surgeon Dr. Farmer in 3-4 weeks HLD - continue Zocor GERD - PPI DVT ppx - Lovenox (monitor for hematoma) FULL CODE Disposition transition to Rehab/SNF ff up with Orthopedic Surgeon Dr. Farmer in 3-4 weeks Current Inpatient Medications: Current Inpatient Medications Medications (Trade) Dose Ordered Sig/Marylou Route Start Time Stop Time Status Last Admin Dose Admin Enoxaparin Sodium (Lovenox Inj) 40 mg Q24H SQ 01/18/18 21:00 02/17/18 20:59 01/20/18 20:48 40 MG Acetaminophen (Tylenol Tab) 650 mg Q4H PRN PO 01/18/18 18:00 02/17/18 17:59 Ondansetron HCl (Zofran Inj) 4 mg Q6H PRN IV 01/18/18 18:00 02/17/18 17:59 Buspirone HCl (Buspar Tab) 5 mg BID PRN PO 01/18/18 18:00 02/17/18 17:59 Multivitamins (Multivitamin Tab) 1 tab DAILY PO 01/19/18 09:00 02/18/18 08:59 01/21/18 08:23 1 TAB Simvastatin (Zocor Tab) 40 mg QPM PO 01/18/18 21:00 02/17/18 20:59 01/20/18 20:48 40 MG Pantoprazole Sodium (Protonix Tab) 40 mg DAILY PO 01/19/18 09:00 02/18/18 08:59 01/21/18 08:23 40 MG Tramadol HCl (Ultram Tab) 50 mg Q4H PRN PO 01/18/18 19:45 02/17/18 19:44 Miscellaneous (Iv Fluids Completed) 1 ea PRN PRN N/A 01/18/18 20:30 01/18/19 20:29
[2018-01-21] MEDS ORDERED: ACET-1047 PO (10:47)
--- NOTE | 2018-01-21 10:51 | Discharge Instructions ---
Discharge Instructions Date of Service Jan 21, 2018. Admission Reason for Admission: Tibial Plateau Fracture Discharge Discharge Diagnosis / Problem: TIBIAL PLATEAU FRACTURE Discharge Goals Goal(s): Diagnostic testing, Therapeutic intervention Activity Recommendations Activity Level: Assistance Required Therapies: Physical Therapy, Occupational Therapy Weightbearing Status: Left toe touch (Limited toe touch weightbearing with a walker and assist) Lifting Limitations: until after follow-up appointment Exercise/Sports Limitations: until after follow-up appointment . Additional Information Patient informed of condition: Yes Advance Directives: No (UNKNOWN) DNR: No (PATIENT IS A FULL CODE) Level of Care: Skilled Communicable Disease: No Prognosis: Stable Instructions / Follow-Up Instructions / Follow-Up PLEASE REFER TO ACCOMPANYING HOSPITAL DISCHARGE SUMMARY. Current Hospital Diet Patient's current hospital diet: Regular Diet Discharge Diet Recommended Diet: Regular Diet Pending Studies Studies pending at discharge: no Physician Orders On Transfer Special Precautions: PLEASE REFER TO ACCOMPANYING HOSPITAL DISCHARGE SUMMARY. Medical Emergencies . Who to Call and When: Medical Emergencies: If at any time you feel your situation is an emergency, please call 911 immediately. . Non-Emergent Contact Non-Emergency issues call your: Primary Care Provider, Surgeon (ORTHOPEDIC SURGEON- DR. EMELY PADILLA) Call Non-Emergent contact if: you have a fever, your pain is not controlled, your pain is worsening, wound has increased drainage, wound has increased redness, wound has increased pain, you have any medication questions . . "Provider Documentation" section prepared by Gaudencio De Leon. . Core Measure Problem Core Measures: None
--- NOTE | 2018-01-21 10:57 | Discharge Summary ---
Discharge Summary Date of Service Jan 21, 2018. Discharge Summary Admission Date: Jan 18, 2018 at 17:59 Discharge Date: Jan 21, 2018 Discharge Disposition: [facility] facility Principal Diagnosis: Nondisplaced L Tibial Plateau Fracture; s/p Mechanical Fall Secondary Diagnoses/Problems: Please refer to hospital course below. Procedures: PELVIC COMPLETE NON OB CLINICAL HISTORY: Pt c/o vag bleeding BLEEDING COMPARISON STUDY: None FINDINGS: The uterus measured 4 cm. The endometrial stripe measured 3 mm. The right ovary measured not seen. The left ovary measured not seen. There was no evidence of pathologic free pelvic fluid. IMPRESSION: Negative pelvic ultrasound for age CHEST ONE VIEW PORTABLE CLINICAL HISTORY: Pt c/O AMS mental status change. Dyspnea. COMPARISON STUDY: No previous studies for comparison. FINDINGS: The bones soft tissues and hemidiaphragms are normal. The cardiomediastinal silhouette is normal. The lungs are clear. The pulmonary vasculature is normal. Platelike atelectasis left base. IMPRESSION: Negative chest. The above report was generated using voice recognition software. It may contain grammatical, syntax or spelling errors. HEAD WITHOUT CONTRAST (CT) CT DOSE: 601.98 mGy.cm HISTORY: Mental status change Pt c/o AMS TECHNIQUE: Multiaxial CT images of the head were performed without the use of intravenous contrast. A dose lowering technique was utilized adhering to the principles of ALARA. Comparison: None. Findings: The paranasal sinuses and mastoid air cells are clear. The calvarium and skull base are intact. The ventricles and sulci are within normal limits. There is no mass, hematoma, midline shift, or acute infarct. Mild chronic small vessel change Impression: No acute intracranial abnormality. Age-related chronic small vessel change Consultations: ORTHOPEDIC SURGEON DR. EMELY PADILLA Pending Studies/Follow-Up: PLEASE REFER TO HOSPITAL COURSE BELOW. Medication Reconciliation New Medications: Acetaminophen (Mapap) 325 Mg Tab 650 MG PO Q4H PRN for Pain or Fever for 7 Days Continued Medications: Buspirone Hcl (Buspirone Hcl) 5 Mg Tab 1 TAB PO BID PRN for Anxiety for 30 Days, #60 TAB 2 Refills Multivitamin (Multivitamin) Tab 1 TAB PO DAILY, TAB Omeprazole (Prilosec) 20 Mg Capcr 20 MG PO DAILY, CAP TAKE ONE HOUR BEFORE THE 1ST MEAL OF THE DAY Simvastatin (Zocor) 40 Mg Tab 40 MG PO QPM, TAB Admission Information HPI (per Admitting provider): This is an 82 year old female with a PMH of HLD, GERD, anxiety - presents after a mechanical fall; states she fell on a root while outside, scraped the back of her right elbow and landed on both of her knees and face. She was seen by orthopedics, Dr. Mojica, as an outpatient and had a CT of the L knee done as well as L knee aspiration. CT suggested L tibial plateau fracture. Patient was to have physical therapy as an outpatient, but due to her inability to ambulate , she presented to the ED. Upon presentation - plan was to send her to rehab ([facility]), but due to insurance purposes, she was admitted. Currently, denying most symptoms, including L knee pain. Physical Exam (per Admitting): General Appearance: no apparent distress Head: normocephalic, atraumatic Eyes: normal inspection ENT: normal ENT inspection, hearing grossly normal Neck: supple Respiratory/Chest: chest non-tender, lungs clear, normal breath sounds, no respiratory distress, no accessory muscle use Cardiovascular: regular rate, rhythm, no edema, no murmur, normal peripheral pulses Abdomen/GI: normal bowel sounds, non tender, soft Back: normal inspection, no CVA tenderness, no muscle spasm, normal range of motion Extremities/Musculoskelatal: no calf tenderness, normal capillary refill, no pedal edema, + swelling (L knee and thigh swelling), + pertinent finding ( decreased flexion of the L knee) 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 Padilla no surgical intervention recommended: Limited toe touch weightbearing with a walker and assist x1. Ice p.r.n. to the left knee. PRN analgesics, ice pack PT/OT recommend Rehab/SNF -transition to [facility] continue PT/OT ff up with Orthopedic Surgeon Dr. Padilla in 3-4 weeks HLD - continue Zocor GERD - PPI Disposition transition to Rehab/SNF ff up with Orthopedic Surgeon Dr. Padilla in 3-4 weeks Total time spent on discharge = 25 mins This includes examination of the patient, discharge planning, medication reconciliation, and communication with other providers. Discharge Instructions Discharge Instructions Date of Service Jan 21, 2018. Admission Reason for Admission: Tibial Plateau Fracture Discharge Discharge Diagnosis / Problem: TIBIAL PLATEAU FRACTURE Discharge Goals Goal(s): Diagnostic testing, Therapeutic intervention Activity Recommendations Activity Level: Assistance Required Therapies: Physical Therapy, Occupational Therapy Weightbearing Status: Left toe touch (Limited toe touch weightbearing with a walker and assist) Lifting Limitations: until after follow-up appointment Exercise/Sports Limitations: until after follow-up appointment . Additional Information Patient informed of condition: Yes Advance Directives: No (UNKNOWN) DNR: No (PATIENT IS A FULL CODE) Level of Care: Skilled Communicable Disease: No Prognosis: Stable Instructions / Follow-Up Instructions / Follow-Up PLEASE REFER TO [facility] DISCHARGE SUMMARY. Current Hospital Diet Patient's current hospital diet: Regular Diet Discharge Diet Recommended Diet: Regular Diet Pending Studies Studies pending at discharge: no Physician Orders On Transfer Special Precautions: PLEASE REFER TO [facility]PANYING HOSPITAL DISCHARGE SUMMARY. Medical Emergencies . Who to Call and When: Medical Emergencies: If at any time you feel your situation is an emergency, please call 911 immediately. . Non-Emergent Contact Non-Emergency issues call your: Primary Care Provider, Surgeon (ORTHOPEDIC SURGEON- DR. EMELY PADILLA) Call Non-Emergent contact if: you have a fever, your pain is not controlled, your pain is worsening, wound has increased drainage, wound has increased redness, wound has increased pain, you have any medication questions . . "Provider Documentation" section prepared by Gaudencio De Leon. . Core Measure Problem Core Measures: None
[2018-01-21 13:52] VITALS: BP 115/71; PULSE 69; TEMP 36.8; O2SAT 92
== END 2018-01-21 17:00 ==
LOC: C.EDB 14:49 → C.MSN 17:59 → ENRESERV 18:35
PROVIDERS: ADMIT Family Medicine; ATTEND Internal Medicine
DX: S82.145A Nondisplaced bicondylar fracture of left tibia, initial encounter for closed fracture (principal); W19.XXXA Unspecified fall, initial encounter; Y92.096 Garden or yard of other non-institutional residence as the place of occurrence of the external cause; M17.12 Unilateral primary osteoarthritis, left knee; M24.562 Contracture, left knee; K21.9 Gastro-esophageal reflux disease without esophagitis; E78.00 Pure hypercholesterolemia, unspecified; F41.9 Anxiety disorder, unspecified; Z79.899 Other long term (current) drug therapy; Z88.1 Allergy status to other antibiotic agents; Z88.8 Allergy status to other drugs, medicaments and biological substances

== ENCOUNTER 2019-03-08 12:14 | Inpatient (IN) ==
[2019-03-08] MEDS ORDERED: SODIUM CHLORIDE 0.9% 1000ML 1,000 ML IV SCH (12:45)
--- NOTE | 2019-03-08 12:52 | Emergency Department Note ---
Entered by Isis Nunez acting as a scribe for History of Present Illness General Chief complaint: Urinary Symptoms Stated complaint: FREQ URINATION,BURNING,CONFUSION,WEAKNESS Time Seen by Provider: 03/08/19 12:24 Source: patient and family (daughter) History of Present Illness Onset (ago): week(s) 1 Location: pelvis Pain Consistency: + other (persistent) Maximum Pain Intensity: 0 Exacerbated By: + other (urinary frequency) Associated symptoms: + denies other symptoms (fever, nausea, vomiting, diarrhea, or headaches) and + other (dysuria, excessive thirst, loss of appetite, confusion, fatigue, weakness) The patient is a 83 year old female that is presenting to the Emergency Room with complaints of persistent urinary frequency that has worsened over the past week. The patients daughter reports that the patient has been fatigued and weak over the past month and that she has lost 12 lbs in that time period. Her daughter note that the patient has a prolapsed bladder and that she has been complaining of dysuria with urinary frequency. Her daughter reports that the patient was confused this morning and did not get out of bed at her regular time. Her daughter notes that the patient does not eat much at baseline but sta caleb that she is eating less than usual. The patient denies any fever, nausea, vomiting, diarrhea, or headaches. She notes that she is thirsty all of the time. She states that she had one episode of black stool several days ago. The patient reports that she lives alone but that her children check on her regularly. She notes that she receives food from [employer]. The patient denies taking any blood thinners. She notes that she has discontinued her regular medications recently due to her excessive thirst and dry mouth. She denies any recent falls. Home Medications Home Medications Medication Instructions Recorded Confirmed Type calcium carbonate [Calcium 500] 500 mg PO Q2D 03/08/19 03/08/19 History multivitamin 1 tab PO Q2D 03/08/19 03/08/19 History omeprazole 20 mg PO QAM 03/08/19 03/08/19 History simvastatin 40 mg PO HS 03/08/19 03/08/19 History Allergies Allergy/AdvReac Type Severity Reaction Status Date / Time cephalexin Allergy Intermediate LIP Unverified 03/08/19 13:23 SWELLING Estrogens Allergy Intermediate HIVES Unverified 03/08/19 13:23 NSAIDS (Non-Steroidal Allergy Intermediate HIVES/SWELL Unverified 03/08/19 13:23 Anti-Inflamma ING Sympathomimetics Allergy Intermediate HIVES Uncoded 03/08/19 13:23 Past Med/Surg History Medical History Knee fracture (Resolved) Prolapsed bladder (Chronic) Family History Other Family history non-contributory Social History Preferred Language: Tongan marital status: Single Current Living Situation: Alone current occupational status: retired Feels Safe at Home: Yes Smoking Status: Never smoker Review of Systems See HPI for pertinent positives & negatives. and A total of 10 systems reviewed and were otherwise negative Physical Exam Vital Signs Vital Signs - 24 hr 03/08/19 12:18 03/08/19 13:08 03/08/19 13:11 Temperature 36.5 C Temperature Source Oral Sepsis Recent Fever Within 48 Hours No Sepsis New/Unexplained Change in Mental Status No Sepsis Action Taken by Nursing No Action Required Pulse Rate - Lying 91 H Pulse Rate - Sitting 94 H Pulse Rate - Standing 121 H Pulse Rate 107 H 89 Pulse Rate [Right Finger] 88 Pulse Rhythm Regular Pulse Rhythm [Right Finger] Regular Pulse Strength [Right Finger] Normal Respiratory Rate 18 20 20 Respiratory Effort / Characteristics Non-Labored Non-Labored Spontaneous Respiratory Depth Normal Normal Respiratory Pattern Regular Regular Blood Pressure - Lying 100/68 Blood Pressure - Sitting 100/67 Blood Pressure- Standing 86/64 L Blood Pressure 104/75 Blood Pressure [Right Arm] 108/69 Blood Pressure Mean 84 Blood Pressure Mean [Right Arm] 82 Blood Pressure Position Sitting Blood Pressure Position [Right Arm] Sitting Pulse Oximetry 96 95 95 Oxygen Delivery Method Room Air Room Air Room Air GENERAL: Patient is in no acute distress. HEENT: No acute trauma, normocephalic atraumatic, mucous membranes dry, no nasal congestion, no scleral icterus. NECK: No stridor, no adenopathy, no meningismus, trachea is midline. LUNGS: Clear to auscultation bilaterally, no wheeze, no rhonchi, breath sounds equal. HEART: Mildly tachycardic with regular rhythm, no murmur. ABDOMEN: Soft, nontender, bowel sounds positive, no hernias, no peritonitis. EXTREMITIES: No cyanosis or edema, full range of motion of all the joints without pain or difficulty, no signs for acute trauma. NEUROLOGIC: Oriented x 3, no acute motor or sensory deficits, no focal weakness. SKIN: No rash, no jaundice, no diaphoresis. Course 1228:The patient was evaluated in room C03. A complete history and physical examination was performed. 1401: Orthostatic vital signs were positive. 1433: I discussed the patient's case with SHAZIA Fay, who will evaluate the patient for further management and care. 1436: Upon reevaluation, the patient is resting comfortably. I discussed laboratory and radiographic results with the patient. She verbalized agreement of the treatment plan. The patient will be evaluated for further management and care. Consultations Consultation #1: I discussed the patient's case with SHAZIA Fay, who will evaluate the patient for further management and care. Time: 14:33 Administered Medications Discontinued Medications Sodium Chloride (Nss 1000ml) 1,000 mls @ 999 mls/hr IV .Q1H1M ANA LAURA Stop: 03/08/19 13:45 Last Admin: 03/08/19 13:20 Dose: 999 mls/hr Documented by: [id number] Medical Decision Making Differential Diagnosis Differential diagnosis includes: Etiologies such as dehydration, stroke, intracranial bleeding, renal or liver fa ilure, electrolyte imbalance, UTI, pneumonia, DC as well as others were entertained. Medical Records Attestation: I reviewed the patient's medical records. Home Medications Current Medication List: was personally reviewed by me Laboratory Data Attestation: I reviewed the patient's lab results. Result diagrams: 03/08/19 12:32 03/08/19 12:32 Lab Results 03/08/19 03/08/19 03/08/19 Range/Units 12:32 12:32 13:50 WBC 8.81 (4.8-10.8) K/uL RBC 4.77 (4.2-5.4) M/uL Hgb 14.6 (12.0-16.0) g/dL Hct 42.1 (37-47) % MCV 88.3 (80-100) fL MCH 30.6 (25-34) pg MCHC 34.7 (32-36) g/dL RDW Std Deviation 46.7 H (36.4-46.3) fL RDW Coeff of Shannan 14.6 H (11.5-14.5) % Plt Count 232 (130-400) K/uL MPV 9.7 (7.4-10.4) fL Immature Gran % (Auto) 1.2 % Neut % (Auto) 63.2 % Lymph % (Auto) 25.2 % Sac % (Auto) 10.2 % Eos % (Auto) 0.1 % Baso % (Auto) 0.1 % Immature Gran # (Auto) 0.11 H (0.00-0.02) K/uL Neut # (Auto) 5.56 (1.4-6.5) K/uL Lymph # (Auto) 2.22 (1.2-3.4) K/uL Sac # (Auto) 0.90 H (0.11-0.59) K/uL Eos # (Auto) 0.01 (0-0.5) K/uL Baso # (Auto) 0.01 (0-0.2) K/uL Sodium 130 L (136-145) mmol/L Potassium 4.4 (3.5-5.1) mmol/L Chloride 98 (98-107) mmol/L Carbon Dioxide 21 (21-32) mmol/L Anion Gap 11.0 (3-11) BUN 46 H (7-18) mg/dl Creatinine 1.86 H (0.6-1.2) mg/dl Est Cr Clr Drug Dosing 19.5 ml/min Est GFR ( Amer) 28.3 Est GFR (Non-Af Amer) 24.4 BUN/Creatinine Ratio 24.9 H (10-20) Glucose 110 H (70-99) mg/dl Calcium 9.7 (8.5-10.1) mg/dl Magnesium 2.7 H (1.8-2.4) mg/dl Total Bilirubin 0.9 (0.2-1) mg/dl AST 39 H (15-37) U/L ALT 30 (12-78) U/L Alkaline Phosphatase 107 (45-117) U/L Troponin I < 0.015 (0-0.045) ng/ml Total Protein 8.0 (6.4-8.2) gm/dl Albumin 3.3 L (3.4-5.0) gm/dl Globulin 4.7 H (2.5-4.0) gm/dl Albumin/Globulin Ratio 0.7 L (0.9-2) TSH 6.040 H (0.300-4.500) uIu/ml Free T4 1.24 (0.8-1.6) ng/dl Urine Color Yellow Urine Appearance Turbid A (Clear) Urine pH 6.5 (4.5-7.5) Ur Specific Hulen 1.018 (1.000-1.030) Urine Protein 3+ H (Negative) Urine Glucose (UA) Negative (Negative) Urine Ketones 1+ H (Negative) Urine Blood 3+ H (Negative) Urine Nitrite Negative (Negative) Urine Bilirubin Negative (Negative) Urine Urobilinogen Negative (Negative) Ur Leukocyte Esterase 3+ H (Negative) Urine WBC (Auto) >30 H (0-5) /hpf Urine RBC (Auto) >30 H (0-4) /hpf U Hyaline Cast (Auto) 0 (0-5) /lpf U Epithel Cells (Auto) 10-20 H (0-5) /lpf Urine Bacteria (Auto) 4+ H (Negative) Urine Yeast Not Reportable Imaging Data Radiologist's Impression: Radiology results as stated below per my review and the radiologist's interpretation: XR chest 1V portable CLINICAL HISTORY: weakness COMPARISON STUDY: 01/18/2018 FINDINGS: The heart is normal in size. There is a hiatal hernia. There is no failure. There is no focal pulmonary consolidation. There are no pleural effusions. IMPRESSION: No active disease in the chest. Electronically signed by: Yonathan Mohamud M.D. 03/08/2019 1:[address] head/brain wo con CLINICAL HISTORY: Acute change in mental status COMPARISON STUDY: 01/18/2018 TECHNIQUE: Axial CT of the brain is performed from the vertex to the skull base. IV contrast was not administered for this examination. A dose lowering technique was utilized adhering to the principles of ALARA. CT DOSE: 537.48 mGy.cm FINDINGS: No intra or extra-axial mass lesions are visualized. There is no CT evidence of acute cortical infarction. There is no evidence of midline shift. There is no acute hemorrhage. No calvarial fractures are visualized. There are moderate white matter hypodensities likely on a small vessel basis. There is no evidence of pathologic ventricular dilatation. There is no evidence of acute sinusitis IMPRESSION: No acute intracranial findings Electronically signed by: Yonathan Mohamud M.D. 03/08/2019 2:15 PM ECG Data Attestation: I personally reviewed and interpreted this ECG as follows: Indication: weakness Rate (beats per minute): 91 Rhythm: normal sinus Findings: no PVC and no ST elevation Blood Pressure Blood Pressure Findings: Normal blood pressure MDM Narrative There is no leukocytosis or concerning anemia. Sodium was low at 130. There was an elevation to the creatinine of 1.86, likely consistent with dehydration. There was no hepatitis. The patient had a slightly high TSH but the T4 was normal. EKG shows a sinus rhythm, no acute ischemia. Cardiac enzyme testing x1 was not consistent with acute cardiac injury. Urinalysis does show significant infection, urine culture is pending. Brain CT shows no acute bleed or mass- effect. Chest film did not show pneumonia or CHF. On exam, the patient did not have any focal neurologic deficits. She did seem dehydrated clinically. She was not febrile. The patient received IV saline, 1 L, a second 1 L bolus was given. Orthostatic vital signs were done during her stay, they were positive. Given the findings of UTI, the patient was given IV Aztreonam, 1 g. This was chosen because of her allergy list. I do think the patient requires a hospital stay. She has some acute kidney injury, she is dehydrated and has a mild hyponatremia. She appears to have a UTI and was reportedly confused today. She was orthostatic by her testing. I did speak with case management, I spoke with the patient and her family. The on-call hospitalist was consulted. Impression & Plan Change in mental status, UTI (urinary tract infection), Acute kidney injury, Hyponatremia, Dehydration Discharge Plan Visit Data Chief Complaint: Urinary Symptoms Stated Complaint: FREQ URINATION,BURNING,CONFUSION,WEAKNESS ED Provider: Christ Mtoley Discharge Problem: Change in mental status, UTI (urinary tract infection), Acute kidney injury, Hyponatremia, Dehydration Patient Disposition: Being Evaluated by Hospitalist Forms Stand Alone Forms: My [facility] Prescriptions Prescriptions: No Action simvastatin 40 mg tablet 40 mg PO HS RF: 0 calcium carbonate [Calcium 500] 500 mg calcium (1,250 mg) Tablet 500 mg PO Q2D RF: 0 omeprazole 20 mg capsule,delayed release(/EC) 20 mg PO QAM RF: 0 multivitamin Tablet,Chewable 1 tab PO Q2D RF: 0 Referrals Referrals: Delta Campos DO [Primary Care Provider] - Discharge Problem: Change in mental status Qualifiers: Altered mental status type: unspecified Qualified Code(s): R41.82 - Altered mental status, unspecified UTI (urinary tract infection) Qualifiers: Urinary tract infection type: site unspecified Hematuria presence: with hematuria Qualified Code(s): N39.0 - Urinary tract infection, site not specified The scribe's documentation has been prepared under my direction and personally reviewed by me in its entirety. I confirm that the note above accurately reflects all work, treatment, procedures, and medical decision making performed by me.
[2019-03-08 13:01] LABS: Basophils # (auto) 0.01 K/uL (0-0.2); Basophils % (auto) 0.1 %; Eosinophils # (auto) 0.01 K/uL (0-0.5); Eosinophils % (auto) 0.1 %; Hematocrit (blood only) 42.1 % (37-47); Hemoglobin 14.6 g/dL (12.0-16.0); Immature Granulocytes # (auto) 0.11 K/uL (0.00-0.02); Immature Granulocytes % (auto) 1.2 %; Lymphocytes # (auto) 2.22 K/uL (1.2-3.4); Lymphocytes % (auto) 25.2 %; Mean Corpuscular Hgb Conc 34.7 g/dL (32-36); Mean Corpuscular Volume 88.3 fL (80-100); Mean Platelet Volume 9.7 fL (7.4-10.4); Monocytes % (auto) 10.2 %; Neutrophils # (auto) 5.56 K/uL (1.4-6.5); Neutrophils % (auto) 63.2 %; Platelet Count 232 K/uL (130-400); RDW Coefficient of Variation 14.6 % (11.5-14.5); RDW Standard Deviation 46.7 fL (36.4-46.3); Red Blood Count 4.77 M/uL (4.2-5.4); White Blood Count 8.81 K/uL (4.8-10.8)
--- NOTE | 2019-03-08 13:05 | XRay Report ---
XR chest 1V portable CLINICAL HISTORY: weakness COMPARISON STUDY: 01/18/2018 FINDINGS: The heart is normal in size. There is a hiatal hernia. There is no failure. There is no foc al pulmonary consolidation. There are no pleural effusions.[ IMPRESSION: No active disease in the chest. Electronically signed by: Yonathan Mohamud M.D. 03/08/2019 1:04 PM
[2019-03-08 13:31] LABS: Albumin Level 3.3 gm/dl (3.4-5.0); BUN Creatinine Ratio 24.9 (10-20); Blood Urea Nitrogen 46 mg/dl (7-18); Calcium 9.7 mg/dl (8.5-10.1); Carbon Dioxide 21 mmol/L (21-32); Chloride 98 mmol/L (98-107); Creatinine Clr Calc Pharmacy 19.5 ml/min; Est GFR (African American) 28.3; Est GFR (Non-African American) 24.4; Glucose 110 mg/dl (70-99); Magnesium 2.7 mg/dl (1.8-2.4); Potassium 4.4 mmol/L (3.5-5.1); Sodium 130 mmol/L (136-145)
[2019-03-08 13:42] LABS: Alanine Aminotransferase 30 U/L (12-78); Albumin Globulin Ratio 0.7 (0.9-2); Alkaline Phosphatase 107 U/L (45-117); Aspartate Aminotransferase 39 U/L (15-37); Bilirubin,Total 0.9 mg/dl (0.2-1); Globulin 4.7 gm/dl (2.5-4.0); Troponin I < 0.015 ng/ml (0-0.045)
[2019-03-08 13:56] LABS: T4 Free Thyroxine 1.24 ng/dl (0.8-1.6)
[2019-03-08] MEDS ORDERED: SODIUM CHLORIDE 0.9% 1000ML 1,000 ML IV ONE (14:01)
[2019-03-08 14:08] LABS: Appearance Urine Turbid (Clear); Bacteria Urine Automated 4+ (Negative); Bilirubin Urine Negative (Negative); Blood Urine 3+ (Negative); Color Urine Yellow; Glucose Urine UA Negative (Negative); Ketones Urine 1+ (Negative); Leukocyte Esterase Urine 3+ (Negative); Nitrite Urine Negative (Negative); Protein Urine 3+ (Negative); Specific Gravity Urine 1.018 (1.000-1.030); Urobilinogen Urine Negative (Negative); WBC Urine Automated >30 /hpf (0-5); pH Urine 6.5 (4.5-7.5)
--- NOTE | 2019-03-08 14:16 | CT Scan Report ---
CT head/brain wo con CLINICAL HISTORY: Acute change in mental status COMPARISON STUDY: 01/18/2018 TECHNIQUE: Axial CT of the brain is performed from the vertex to the skull base. IV contrast was not administered for this examination. A dose lowering technique was utilized adhering to the principles of ALARA. CT DOSE: 537.48 mGy.cm FINDINGS: No intra or extra-axial mass lesions are visualized. There is no CT evidence of acute cortical infarc tion. There is no evidence of midline shift. There is no acute hemorrhage. No calvarial fractures ar e visualized. There are moderate white matter hypodensities likely on a small vessel basis. There is no evidence of pathologic ventricular dilatation. There is no evidence of acute sinusitis IMPRESSION: No acute intracranial findings Electronically signed by: Yonathan Mohamud M.D. 03/08/2019 2:15 PM
[2019-03-08 14:21] LABS: Cast Urine Automated 0 /lpf (0-5); RBC Urine Automated >30 /hpf (0-4)
[2019-03-08] MEDS ORDERED: AZTREONAM 1,000 MG in DEXTROSE 5% 100 ML IV STA (14:29)
--- NOTE | 2019-03-08 15:46 | Discharge Summary ---
Date of Service March 08, 2019 Discharge Data Allergies Allergy/AdvReac Type Severity Reaction Status Date / Time cephalexin Allergy Intermediate LIP Unverified 03/08/19 13:23 SWELLING Estrogens Allergy Intermediate HIVES Unverified 03/08/19 13:23 NSAIDS (Non-Steroidal Allergy Intermediate HIVES/SWELL Unverified 03/08/19 13:23 Anti-Inflamma ING Sympathomimetics Allergy Intermediate HIVES Uncoded 03/08/19 13:23 Consultations 03/08/19 14:35 ED Decision to Admit Stat Ordered Studies 03/08/19 12:32 CT head/brain wo con Stat Discharge Plan Visit Data Chief Complaint: Urinary Symptoms Stated Complaint: FREQ URINATION,BURNING,CONFUSION,WEAKNESS ED Provider: Christ Motley Patient Disposition: Being Evaluated by Hospitalist Forms Stand Alone Forms: My [facility] Prescriptions Prescriptions: No Action simvastatin 40 mg tablet 40 mg PO HS RF: 0 calcium carbonate [Calcium 500] 500 mg calcium (1,250 mg) Tablet 500 mg PO Q2D RF: 0 multivitamin Tablet,Chewable 1 tab PO Q2D RF: 0 Referrals Referrals: Delta Campos DO [Primary Care Provider] -
--- NOTE | 2019-03-08 16:09 | History & Physical Report ---
Date of Service March 08, 2019 Assessment & Plan (1) Change in mental status: Mostly due to UTI CT had showed no acute intracranial abnormality No focal neuro deficit on exam Continue monitor closely (2) UTI (urinary tract infection): UA positive for leukocytes and bacteria Received Azactam in the ER since patient is allergic with Keflex Check urine culture and blood culture Will continue continue IV azactam for now (3) Acute kidney injury: Hx CKD stage 3 Mostly due to dehydration from poor oral intake Creatinine on admission 1.8 Receive IV fluid We will continue gentle hydration We will avoid any nephrotoxic agent Monitor BMP (4) Hyponatremia: Mostly due to poor oral intake and dehydration Sodium on admission 130 Continue gentle IV fluid with normal saline Monitor BMP (5) Weight loss: Weight loss Lost about 4 kg in the last 2 months Mostly due to poor appetite Will increase protein in diet Nutrition consult (6) Weakness generalized: Mostly due to UTI and dehydration No focal neuro deficit CT head negative for any intracranial abnormality Fall precaution PT/ OT eval DVT px on heparin subq CODE status Conditional code (Agreed with CPR, but no intubation as per my discussion with patient and family) History of Present Illness Chief Complaint: Altered mental status Primary Care Provider: Delta Campos DO 83 years old female with past medical history of CKD stage III, osteoporosis, reflux esophagitis, prolapsed bladder presented to the ER for altered mental status. Patient is a very poor historian and as decreased hearing function, most of the history obtained from daughter at bedside. Daughter said patient was in bed this morning which is not usual for her and when family visiting her she was found to be confused. Daughter said for the past week patient has been complaining of dysuria and increased urinary frequency. Patient said that urinary symptom seems to get worse. Patient also has been having decreased appetite in the last few weeks and lost about 12 pounds as per daughter. Daughter said that she receives food from [employer]. Patient said that she has not been eating much because her mouth feels very dry and she only eat few bites and threw the rest of the food in the trash. Daughter said that patient is not a big eater but her appetite seems to get worse. Patient also said that she has not been drinking much because if she drinks to much water she would have to go to the bathroom a lot where she would have to ask for assistance to go to the bathroom. Patient said that she feels weak. She stopped taking the omeprazole and simvastatin because when called the pharmacy, pharmacy said the meds that can cause dry mouth. Daughter said she made her to start to take the simvastatin but not the omeprazole. Patient denies any chest pain, palpitation, nausea, dizziness, fever, shortness of breath and diarrhea. Allergies Allergy/AdvReac Type Severity Reaction Status Date / Time cephalexin Allergy Intermediate LIP Unverified 03/08/19 13:23 SWELLING Estrogens Allergy Intermediate HIVES Unverified 03/08/19 13:23 NSAIDS (Non-Steroidal Allergy Intermediate HIVES/SWELL Unverified 03/08/19 13:23 Anti-Inflamma ING Sympathomimetics Allergy Intermediate HIVES Uncoded 03/08/19 13:23 Home Medications Home Medications Medication Instructions Recorded Confirmed Type calcium carbonate [Calcium 500] 500 mg PO Q2D 03/08/19 03/08/19 History multivitamin 1 tab PO Q2D 03/08/19 03/08/19 History simvastatin 40 mg PO HS 03/08/19 03/08/19 History Past Med/Surg History Medical History Knee fracture (Resolved) Prolapsed bladder (Chronic) Family History Other Family history non-contributory Social History Preferred Language: Kazakh Communication Ability: Effective Conveyor System Operator Required: No Beliefs That Will Affect Care: None marital status: Single Current Living Situation: Alone current occupational status: retired Other Information That Helps Us Care for You: No Feels Safe at Home: Yes Safety Concerns: Feels Safe At This Time Smoking Status: Former smoker Do You Dip or Chew Tobacco: No Smoking End Date: a long time ago Second Hand Exposure: No Tobacco Cessation Education Requested by Patient: No Hx Alcohol Use: No Hx Substance Use: No Review of Systems Review of Systems: All systems reviewed & are unremarkable except as noted in HPI & below Physical Exam Physical Exam: General- No acute distress Head- atraumatic Eyes- PERRL, EOMI, ENT- oropharynx clear, dy mouth, decrease hearing function, uvula midline, no tonsils swelling or exudate Neck- supple, no JVD Lungs- clear to auscultation Heart- regular rhythm; no murmur Abdomen- normal bowel sounds, soft, nontender Extremities- no calf tenderness Neuro- alert, oriented, PERRL, EOMI; no facial palsy; no dysarthria Skin- warm & dry Results & Data Vital Signs (Past 12 Hours) Vital Signs Temp Pulse Pulse Resp BP BP Pulse Ox 03/08/19 13:11 88 20 108/69 95 03/08/19 13:08 89 20 95 03/08/19 12:18 36.5 C 107 H 18 104/[address] head/brain wo con CLINICAL HISTORY: Acute change in mental status COMPARISON STUDY: 01/18/2018 TECHNIQUE: Axial CT of the brain is performed from the vertex to the skull base. IV contrast was not administered for this examination. A dose lowering technique was utilized adhering to the principles of ALARA. CT DOSE: 537.48 mGy.cm FINDINGS: No intra or extra-axial mass lesions are visualized. There is no CT evidence of acute cortical infarction. There is no evidence of midline shift. There is no acute hemorrhage. No calvarial fractures are visualized. There are moderate white matter hypodensities likely on a small vessel basis. There is no evidence of pathologic ventricular dilatation. There is no evidence of acute sinusitis IMPRESSION: No acute intracranial findings Electronically signed by: Yonathan Mohamud M.D. 03/08/2019 2:15 PM Dictated: 03/08/19 1414 Transcribed: 03/08/19 1414 XR chest 1V portable CLINICAL HISTORY: weakness COMPARISON STUDY: 01/18/2018 FINDINGS: The heart is normal in size. There is a hiatal hernia. There is no failure. There is no focal pulmonary consolidation. There are no pleural effusions.[ IMPRESSION: No active disease in the chest. Electronically signed by: Yonathan Mohamud M.D. 03/08/2019 1:04 PM Dictated: 03/08/19 1303 Transcribed: 03/08/19 1303 (1) UTI (urinary tract infection) Hematuria presence: with hematuria Urinary tract infection type: site unspecified Qualified Code(s): N39.0 - Urinary tract infection, site not specified; R31.9 - Hematuria, unspecified (2) Change in mental status Altered mental status type: unspecified Qualified Code(s): R41.82 - Altered mental status, unspecified
[2019-03-08] MEDS: SODIUM CHLORIDE 0.9% 1000ML 1,000 ML IV SCH (18:58)
[2019-03-08] MEDS ORDERED: CALCIUM CARBONATE 500 MG CHEWABLE TAB PO SCH (19:00)
[2019-03-08 19:37] LABS: INR 1.4 (0.9-1.1); Prothrombin Time 13.8 Seconds (9.0-12.0)
[2019-03-08] MEDS: SIMVASTATIN 40 MG TAB PO SCH (20:54)
[2019-03-08] MEDS: MULTIVITAMIN TAB PO SCH (20:54)
[2019-03-08] MEDS: HEPARIN SOD 5,000 UNIT/0.5 ML VIAL SQ SCH (20:56)
[2019-03-09] MEDS ORDERED: AZTREONAM 500 MG in DEXTROSE 5% 100 ML IV SCH (03:00)
[2019-03-09] MEDS: HEPARIN SOD 5,000 UNIT/0.5 ML VIAL SQ SCH ×3 (07:36→21:22)
[2019-03-09 08:27] LABS: Potassium 3.9 mmol/L (3.5-5.1)
[2019-03-09 08:28] LABS: BUN Creatinine Ratio 27.7 (10-20); Calcium 8.3 mg/dl (8.5-10.1); Creatinine Clr Calc Pharmacy 29.2 ml/min; Est GFR (African American) 46.2; Est GFR (Non-African American) 39.9
[2019-03-09] MEDS: SODIUM CHLORIDE 0.9% 1000ML 1,000 ML IV SCH (10:00)
[2019-03-09] MEDS: CIPROFLOXACIN 500 MG TAB PO SCH ×2 (12:25→21:21)
--- NOTE | 2019-03-09 13:05 | Hospitalist Progress Note ---
Date of Service March 09, 2019 Assessment & Plan (1) Change in mental status: Metabolic Encephalopathy Mostly due to UTI CT had showed no acute intracranial abnormality No focal neuro deficit on exam Back to baseline as per son Resolved (2) UTI (urinary tract infection): UA positive for leukocytes and bacteria Received Azactam in the ER since patient is allergic with Keflex Urine cx grew group B beta strep IV azactam changed to cipro 500mg BID Blood cx pending (3) Acute kidney injury: Hx CKD stage 3 Mostly due to dehydration from poor oral intake Creatinine on admission 1.8 Receive IV fluid Creatinine improves to 1.2 We will continue gentle hydration for few more hrs today, then d/c it We will avoid any nephrotoxic agent Monitor BMP (4) Hyponatremia: Mostly due to poor oral intake and dehydration Sodium on admission 130 Na improved to 136 today Monitor BMP (5) Weight loss: Weight loss Lost about 4 kg in the last 2 months Mostly due to poor appetite Increase protein in diet Nutrition consult (6) Weakness generalized: Mostly due to UTI and dehydration No focal neuro deficit CT head negative for any intracranial abnormality Fall precaution PT/ OT eval DVT px on heparin subq CODE status Conditional code (Agreed with CPR, but no intubation as per my disc ussion with patient and family) Disposition Will discharge home tomorrow Subjective Pt was seen seen and examined Sitting in the chair with no distress with son at bedside Pt said that she feels much better today She said that her strength is a little bit improves She continues to have the dry mouth Denies any chest pain, palpitation and SOB Physical Exam Physical Exam: General- No acute distress Head- atraumatic Eyes- PERRL, EOMI, ENT- oropharynx clear, dy mouth, decrease hearing function, uvula midline, no tonsils swelling or exudate Neck- supple, no JVD Lungs- clear to auscultation Heart- regular rhythm; no murmur Abdomen- normal bowel sounds, soft, nontender Extremities- no calf tenderness Neuro- alert, oriented, PERRL, EOMI; no facial palsy; no dysarthria Skin- warm & dry Results & Data Vital Signs (Past 12 Hours) Vital Signs Temp Pulse Resp BP Pulse Ox 03/09/19 07:57 36.5 C 75 17 107/64 93 (1) UTI (urinary tract infection) Hematuria presence: with hematuria Urinary tract infection type: site unspecified Qualified Code(s): N39.0 - Urinary tract infection, site not specified; R31.9 - Hematuria, unspecified (2) Change in mental status Altered mental status type: unspecified Qualified Code(s): R41.82 - Altered mental status, unspecified
[2019-03-09] MEDS: SIMVASTATIN 40 MG TAB PO SCH (21:21)
[2019-03-10] MEDS: CIPROFLOXACIN 500 MG TAB PO SCH (07:25)
[2019-03-10] MEDS: MULTIVITAMIN TAB PO SCH (07:25)
[2019-03-10] MEDS: HEPARIN SOD 5,000 UNIT/0.5 ML VIAL SQ SCH (07:25)
--- NOTE | 2019-03-10 15:39 | Hospitalist Progress Note ---
Date of Service March 10, 2019 Assessment & Plan (1) Change in mental status: Metabolic Encephalopathy Mostly due to UTI CT had showed no acute intracranial abnormality No focal neuro deficit on exam Back to baseline as per son Resolved (2) UTI (urinary tract infection): UA positive for leukocytes and bacteria Received Azactam in the ER since patient is allergic with Keflex Urine cx grew group B beta strep Blood cx no growth IV azactam changed to cipro 500mg BID Will continue cipro BID (3) Acute kidney injury: Hx CKD stage 3 Mostly due to dehydration from poor oral intake Creatinine on admission 1.8 Received IV fluid Creatinine improves to 1.2 We will avoid any nephrotoxic agent Stable (4) Hyponatremia: Mostly due to poor oral intake and dehydration Sodium on admission 130 Na improved to 136 Stable Monitor BMP (5) Weight loss: Weight loss Lost about 4 kg in the last 2 months Mostly due to poor appetite Increase protein in diet Nutrition on board (6) Weakness generalized: Mostly due to UTI and dehydration No focal neuro deficit CT head negative for any intracranial abnormality Fall precaution Will continue physical therapy with home health services DVT px on heparin subq CODE status Conditional code (Agreed with CPR, but no intubation as per my discussion with patient and family) Disposition Will discharge home today Subjective Pt was seen and examined Lying in bed with no distress Pt said that she feels much better She said that the biotene spray help but she cannot push the cap to use it She denies any chest pain, palpitation, dizziness and SOB Physical Exam Physical Exam: General- No acute distress Head- atraumatic Eyes- PERRL, EOMI, ENT- oropharynx clear, dy mouth, decrease hearing function, uvula midline, no tonsils swelling or exudate Neck- supple, no JVD Lungs- clear to auscultation Heart- regular rhythm; no murmur Abdomen- normal bowel sounds, soft, nontender Extremities- no calf tenderness Neuro- alert, oriented, PERRL, EOMI; no facial palsy; no dysarthria Skin- warm & dry Results & Data Vital Signs (Past 12 Hours) Vital Signs Temp Pulse Resp BP BP Pulse Ox 03/10/19 15:11 36.6 C 85 18 94/62 L 94 03/10/19 07:28 36.7 C 74 16 105/67 95 (1) UTI (urinary tract infection) Hematuria presence: with hematuria Urinary tract infection type: site unspecified Qualified Code(s): N39.0 - Urinary tract infection, site not specified; R31.9 - Hematuria, unspecified (2) Change in mental status Altered mental status type: unspecified Qualified Code(s): R41.82 - Altered mental status, unspecified
--- NOTE | 2019-03-12 22:51 | Discharge Summary ---
Date of Service March 10, 2019 Admission HPI Per Admitting Provider 83 years old female with past medical history of CKD stage III, osteoporosis, reflux esophagitis, prolapsed bladder presented to the ER for altered mental status. Patient is a very poor historian and as decreased hearing function, most of the history obtained from daughter at bedside. Daughter said patient was in bed this morning which is not usual for her and when family visiting her she was found to be confused. Daughter said for the past week patient has been complaining of dysuria and increased urinary frequency. Patient said that urinary symptom seems to get worse. Patient also has been having decreased appetite in the last few weeks and lost about 12 pounds as per daughter. Daughter said that she receives food from [employer]. Patient said that she has not been eating much because her mouth feels very dry and she only eat few bites and threw the rest of the food in the trash. Daughter said that patient is not a big eater but her appetite seems to get worse. Patient also said that she has not been drinking much because if she drinks to much water she would have to go to the bathroom a lot where she would have to ask for assistance to go to the bathroom. Patient said that she feels weak. She stopped taking the omeprazole and simvastatin because when called the pharmacy, pharmacy said the meds that can cause dry mouth. Daughter said she made her to start to take the simvastatin but not the omeprazole. Patient denies any chest pain, palpitation, nausea, dizziness, fever, shortness of breath and diarrhea. Admission Exam Per Admitting Provider General- No acute distress Head- atraumatic Eyes- PERRL, EOMI, ENT- oropharynx clear, dy mouth, decrease hearing function, uvula midline, no tonsils swelling or exudate Neck- supple, no JVD Lungs- clear to auscultation Heart- regular rhythm; no murmur Abdomen- normal bowel sounds, soft, nontender Extremities- no calf tenderness Neuro- alert, oriented, PERRL, EOMI; no facial palsy; no dysarthria Skin- warm & dry Principal Diagnosis Metabolic Encephalopathy UTI HERVE on CKD stage 3 Hyponatremia Generalized weakness Discharge Exam General- No acute distress Head- atraumatic Eyes- PERRL, EOMI, ENT- oropharynx clear, dy mouth, decrease hearing function, uvula midline, no tonsils swelling or exudate Neck- supple, no JVD Lungs- clear to auscultation Heart- regular rhythm; no murmur Abdomen- normal bowel sounds, soft, nontender Extremities- no calf tenderness Neuro- alert, oriented, PERRL, EOMI; no facial palsy; no dysarthria Skin- warm & dry Discharge Data Allergies Allergy/AdvReac Type Severity Reaction Status Date / Time cephalexin Allergy Intermediate LIP Unverified 03/08/19 13:23 SWELLING Estrogens Allergy Intermediate HIVES Unverified 03/08/19 13:23 NSAIDS (Non-Steroidal Allergy Intermediate HIVES/SWELL Unverified 03/08/19 13:23 Anti-Inflamma ING Sympathomimetics Allergy Intermediate HIVES Uncoded 03/08/19 13:23 Consultations 03/08/19 14:35 ED Decision to Admit Stat Ordered Studies 03/08/19 12:32 CT head/brain wo con Stat CT head/brain wo con CLINICAL HISTORY: Acute change in mental status COMPARISON STUDY: 01/18/2018 TECHNIQUE: Axial CT of the brain is performed from the vertex to the skull b ase. IV contrast was not administered for this examination. A dose lowering technique was utilized adhering to the principles of ALARA. CT DOSE: 537.48 mGy.cm FINDINGS: No intra or extra-axial mass lesions are visualized. There is no CT evidence of acute cortical infarction. There is no evidence of midline shift. There is no acute hemorrhage. No calvarial fractures are visualized. There are moderate white matter hypodensities likely on a small vessel basis. There is no evidence of pathologic ventricular dilatation. There is no evidence of acute sinusitis IMPRESSION: No acute intracranial findings Electronically signed by: Yonathan Mohamud M.D. 03/08/2019 2:15 PM Dictated: 03/08/19 1414 Transcribed: 03/08/19 1414 XR chest 1V portable CLINICAL HISTORY: weakness COMPARISON STUDY: 01/18/2018 FINDINGS: The heart is normal in size. There is a hiatal hernia. There is no failure. There is no focal pulmonary consolidation. There are no pleural effusions.[ IMPRESSION: No active disease in the chest. Electronically signed by: Yonathan Mohamud M.D. 03/08/2019 1:04 PM Dictated: 03/08/19 1303 Transcribed: 03/08/19 1303 Hospital Course (1) Change in mental status: Metabolic Encephalopathy Mostly due to UTI CT had showed no acute intracranial abnormality No focal neuro deficit on exam Back to baseline as per son Resolved (2) UTI (urinary tract infection): UA positive for leukocytes and bacteria Received Azactam in the ER since patient is allergic with Keflex Urine cx grew group B beta strep Blood cx no growth IV azactam changed to cipro 500mg BID Will continue cipro BID (3) Acute kidney injury: Hx CKD stage 3 Mostly due to dehydration from poor oral intake Creatinine on admission 1.8 Received IV fluid Creatinine improves to 1.2 We will avoid any nephrotoxic agent Stable (4) Hyponatremia: Mostly due to poor oral intake and dehydration Sodium on admission 130 Na improved to 136 Stable Monitor BMP (5) Weight loss: Weight loss Lost about 4 kg in the last 2 months Mostly due to poor appetite Increase protein in diet Nutrition on board (6) Weakness generalized: Mostly due to UTI and dehydration No focal neuro deficit CT head negative for any intracranial abnormality Fall precaution Will continue physical therapy with home health services DVT px on heparin subq CODE status Conditional code (Agreed with CPR, but no intubation as per my discussion with patient and family) Disposition Will discharge home today Total Time Total Time Spent Total Time Spent (In Minutes): 35 minutes Total Time Includes: Examination of the Patient, Discharge Planning, Medication Reconciliation, Communication With Other Providers and Other Discharge Plan Discharge Items Patient Disposition: Home - Home Health Services Reason For Visit: AMS Discharge Diagnosis: Metabolic Encephalopathy UTI HERVE on CKD stage 3 Hyponatremia Generalized weakness Discharge Goals: Decrease discomfort, Improve disease control, Increase independence and Improve nutritional status Activity: Resume your previous activity Non-emergency contact: Primary Care Provider Call non-emergency contact if: you have any medication questions and your temperature is above 101 Follow-up/Referrals: Delta Campos DO [Primary Care Provider] - Diet: Heart Healthy Diet Texture: Dental soft (bite-sized) Addtl Provider Instructions: Follow up with your primary care provider Dr. Lobo on 03/13 @ 12:45 PM Continue physical and occupational therapy Fall precaution Complete the course of antibiotic with cipro Increase protein supplement in diet Ok to give patient the biotene to take home Prescriptions: New ciprofloxacin HCl 500 mg Tablet 500 mg PO BID 5 Days Qty: 10 RF: 0 Continued simvastatin 40 mg tablet 40 mg PO HS RF: 0 calcium carbonate [Calcium 500] 500 mg calcium (1,250 mg) Tablet 500 mg PO Q2D RF: 0 multivitamin Tablet,Chewable 1 tab PO Q2D RF: 0 Stand-Alone Forms: [facility] Discharge Orders: Discharge Order (Routine); Ordered 03/10/19 Ordered By: Lissa Mcduffie Admission Data Admit Date/Time: 03/08/19 15:46 Attending Provider: Lissa Mcduffie Admit Provider: Lissa Mcduffie Primary Care Provider: Delta Campos Other Providers: Lissa Mcduffie Service: Medical Other Interventions: Discharge Summary Assessment (RN) Last Done: 03/10/19 16:24 DC Date/Time DO NOT enter until pt leaves facility: 03/10/19 17:44
== END 2019-03-10 17:44 | disposition home health service (06) | DRG 689 ==
LOC: ED 12:14 → 4W 15:46